=== PATIENT | male | born 1940 | race Caucasian/White ===

== ENCOUNTER → 2019-04-26 | Outpatient (CLI) | payer BC ==
--- NOTE | 2019-04-26 11:54 | CARD ---
MR#: [id number] Date of Study: 04/26/2019 Ordering Physician: CHRISSIE YAN, Referring Physician: CHRISSIE YAN, Tech: Mariam Rubio APPROVED REPORT EXAM: Two-dimensional and M-mode echocardiogram with Doppler and color Doppler. Other Information Quality : AverageHR: 70bpm Technically limited study due to body habitus. INDICATION Cardiac Disease: CAD RISK FACTORS Hypertension Hyperlipidemia Previous smoker 2D DIMENSIONS RVDd4.3 (2.9-3.5cm)Left Atrium(2D)4.8 (1.6-4.0cm) IVSd1.3 (0.7-1.1cm)Aortic Root(2D)3.4 (2.0-3.7cm) LVDd5.0 (3.9-5.9cm)LVOT Diameter2.2 (1.8-2.4cm) PWd1.2 (0.7-1.1cm)LVDs2.7 (2.5-4.0cm) FS (%) 46.7 %SV93.9 ml Aortic Valve AoV Peak Jaylen.125.3cm/sAoV VTI23.3cm AO Peak GR.6.3mmHgLVOT Peak Jaylen.88.4cm/s LVOT VTI 19.84cmAO Mean GR.3mmHg [place]RI[place] (VMAX)1.16cn0PTT (VTI)3.28cm2 AI P 1/2 Ysjo231dc Mitral Valve MV E Anpewxev00.3cm/sMV DECEL BQVG530we MV A Vgzfumcd66.6cm/sMV QNK49kx E/A Ratio1.1MVA (PHT)3.98cm2 TDI E/Lateral E'10.3E/Medial E'11.5 Pulmonary Valve PV Peak Enjfrcss564.4cm/sPV Peak Grad.5mmHg Tricuspid Valve TR P. Xanohxlt943wr/sTR Peak Gr.30mmHg Pulmonary Vein S1 Ceavlypc36.0cm/sD2 Psamwvhd53.3cm/s PVa xyoherkh256ouof LEFT VENTRICLE The left ventricle is normal size. There is mild to moderate concentric left ventricular hypertrophy. The left ventricular systolic function is normal and the ejection fraction is within normal range. T he Ejection Fraction is 60-65%. There is normal LV segmental wall motion. Transmitral Doppler flow pa ttern is Grade II-pseudonormal filling dynamics. RIGHT VENTRICLE The right ventricle is mildly dilated. There is normal right ventricular wall thickness. The right ve ntricular systolic function is normal. ATRIA The left atrium is borderline dilated. The right atrium is mildly dilated. The interatrial septum is intact with no evidence for an atrial septal defect or patent foramen ovale as noted on 2-D or Dopple r imaging. AORTIC VALVE The aortic valve is normal in structure and function. Doppler and Color Flow revealed trace aortic re gurgitation. There is no significant aortic valvular stenosis. MITRAL VALVE The mitral valve is thickened but opens well. There is no evidence of mitral valve prolapse. There is no mitral valve stenosis. Doppler and Color Flow revealed no mitral valve regurgitation noted. TRICUSPID VALVE The tricuspid valve is normal in structure and function. Doppler and Color Flow revealed trace tricus pid regurgitation with an estimated PAP of 37 mmHg. There is no tricuspid valve stenosis. PULMONIC VALVE The pulmonic valve is not well visualized. Doppler and Color Flow revealed trace to mild pulmonic john paul vular regurgitation. GREAT VESSELS The aortic root is normal in size. The IVC is normal in size and collapses >50% with inspiration. PERICARDIAL EFFUSION There is no evidence of significant pericardial effusion. Critical Notification Critical Value: No <Conclusion> The left ventricle is normal size. The left ventricular systolic function is normal and the ejection fraction is within normal range. The Ejection Fraction is 60-65%. There is mild to moderate concentric left ventricular hypertrophy. There is no significant aortic valvular stenosis. Doppler and Color Flow revealed trace aortic regurgitation. Doppler and Color Flow revealed no mitral valve regurgitation noted. Doppler and Color Flow revealed trace tricuspid regurgitation with an estimated PAP of 37 mmHg. Signed by : Andrew Rodas MD Electronically Approved : 04/26/2019 11:54:34
== END | disposition home or self-care (01) ==
LOC: ECHO 08:48
PROVIDERS: ATTEND Internal Medicine Cardiovascular Disease
DX: I37.1 Nonrheumatic pulmonary valve insufficiency (principal); I11.9 Hypertensive heart disease without heart failure; I25.10 Atherosclerotic heart disease of native coronary artery without angina pectoris; E78.5 Hyperlipidemia, unspecified; Z87.891 Personal history of nicotine dependence
CPT/HCPCS: 93306

== ENCOUNTER → 2020-03-08 | Outpatient (CLI) | payer BC ==
[~2020-03-08] MED LIST: AMLO5TAB10 PO; ASPI-630 PO; CARV25TA2 PO; CITA20TA6 PO; LISI-130 PO; LOVA20TA2 PO; OMEP20CA16 PO; TAMS0.4C97 PO
[2020-03-08 15:38] LABS: BASO % 0 % (0-3); EOS % 0 % (0-3); HEMATOCRIT 29.2 % (39.0-53.0); HEMOGLOBIN 10.6 g/dL (13.0-17.5); LYMPH # 1.2 x10^3/uL (1.0-4.8); LYMPH % 16 % (24-48); MEAN CORPUSCULAR HEMOGLOBIN 35 pg (25-35); MEAN CORPUSCULAR HGB CONC 36 g/dL (31-37); MEAN CORPUSCULAR VOLUME 96 fL (79-100); MONO # 0.7 x10^3/uL (0.0-1.1); MONO % 10 % (0-9); NEUT # 5.6 x10^3/uL (1.8-7.7); NEUT % 74 % (31-73); PLATELET COUNT 166 x10^3/uL (140-400); RED BLOOD COUNT 3.06 x10^6/uL (4.30-5.70); RED CELL DISTRIBUTION WIDTH 14.3 % (11.5-14.5); WHITE BLOOD COUNT 7.6 x10^3/uL (4.0-11.0)
[2020-03-08 16:00] LABS: ALBUMIN 2.9 g/dL (3.4-5.0); CREATININE 1.6 mg/dL (0.7-1.3); DIRECT BILIRUBIN 0.3 mg/dL (0.0-0.2); GFR 42.1; TOTAL BILIRUBIN 0.9 mg/dL (0.2-1.0); TOTAL PROTEIN 9.7 g/dL (6.4-8.2); URIC ACID 11.1 mg/dL (3.5-7.2)
[2020-03-08 16:08] LABS: CALCIUM 12.3 mg/dL (8.5-10.1); POTASSIUM 2.4 mmol/L (3.5-5.1)
[2020-03-10 02:08] LABS: CREATININE PTH 1.31 mg/dL (0.76-1.27); PHOSPHORUS PTH 3.5 mg/dL (2.8-4.1); PTH INTACT 16 pg/mL (15-65)
[2020-03-11 15:14] LABS: KAPPA FREE 548.5 mg/L (3.3-19.4); KAPPA LAMBDA RATIO 137.13 (0.26-1.65)
== END | disposition home or self-care (01) ==
LOC: ONCLAB 14:29
PROVIDERS: ATTEND Internal Medicine Hematology & Oncology
DX: R93.7 Abnormal findings on diagnostic imaging of other parts of musculoskeletal system (principal)
CPT/HCPCS: 36415; 80048; 80076; 82232; 82784; 83520; 83615; 83970; 84550; 85025; 86334

== ENCOUNTER 2020-03-09 14:13 | Outpatient (CLI) | payer BC ==
[2020-03-09 13:34] VITALS: BP 155/83
[~2020-03-09 14:13] MED LIST changes: -CARVEDILOL 12.5 MG TABLET. PO ONE; -LIDOCAINE WITH 8.4% SOD BICARB 3 ML DISP.SYRIN. IJ ONE; -LIDOCAINE WITH 8.4% SOD BICARB 3 ML DISP.SYRIN. ONE; -LISINOPRIL 10 MG TABLET PO ONE; -LISINOPRIL 20 MG TABLET PO ONE; -MIDAZOLAM HCL/PF 2 MG/2 ML VIAL. IV ONE; -MIDAZOLAM HCL/PF 2 MG/2 ML VIAL. ONE; -fentaNYL PF VIAL 100 MCG/2 ML VIAL IV ONE; -fentaNYL PF VIAL 100 MCG/2 ML VIAL ONE
[2020-03-09 14:44] LABS: BASO % 0 % (0-3); EOS % 0 % (0-3); HEMATOCRIT 27.3 % (39.0-53.0); LYMPH # 1.2 x10^3/uL (1.0-4.8); LYMPH % 20 % (24-48); MEAN CORPUSCULAR HEMOGLOBIN 35 pg (25-35); MEAN CORPUSCULAR HGB CONC 37 g/dL (31-37); MEAN CORPUSCULAR VOLUME 95 fL (79-100); MONO # 0.6 x10^3/uL (0.0-1.1); MONO % 10 % (0-9); NEUT # 4.3 x10^3/uL (1.8-7.7); NEUT % 70 % (31-73); PLATELET COUNT 162 x10^3/uL (140-400); RED BLOOD COUNT 2.88 x10^6/uL (4.30-5.70); RED CELL DISTRIBUTION WIDTH 13.7 % (11.5-14.5); WHITE BLOOD COUNT 6.1 x10^3/uL (4.0-11.0)
[2020-03-09 15:16] LABS: ALBUMIN 2.7 g/dL (3.4-5.0); ALBUMIN/GLOBULIN RATIO 0.4 (1.0-1.7); CALCIUM 11.9 mg/dL (8.5-10.1); CREATININE 1.6 mg/dL (0.7-1.3); GFR 42.1; TOTAL BILIRUBIN 0.7 mg/dL (0.2-1.0); TOTAL PROTEIN 8.8 g/dL (6.4-8.2); URIC ACID 10.9 mg/dL (3.5-7.2)
[2020-03-09 15:17] LABS: POTASSIUM 2.6 mmol/L (3.5-5.1)
== END 2020-03-09 14:20 | disposition home or self-care (01) ==
LOC: ONCLAB 14:13
PROVIDERS: ATTEND Internal Medicine Hematology & Oncology
DX: C90.00 Multiple myeloma not having achieved remission (principal)
CPT/HCPCS: 36415; 80053; 84550; 85025

== ENCOUNTER → 2020-03-09 | Outpatient (CLI) | payer BC ==
[2020-03-09] VITALS (8 sets, daily range): BP systolic 150–183; BP diastolic 62–89
[~2020-03-09] VITALS: Ht 170.2 cm; Wt 99.8 kg
[~2020-03-09] MED LIST changes: +CARVEDILOL 12.5 MG TABLET. PO ONE; +LIDOCAINE WITH 8.4% SOD BICARB 3 ML DISP.SYRIN. IJ ONE; +LIDOCAINE WITH 8.4% SOD BICARB 3 ML DISP.SYRIN. ONE; +LISINOPRIL 10 MG TABLET PO ONE; +LISINOPRIL 20 MG TABLET PO ONE; +MIDAZOLAM HCL/PF 2 MG/2 ML VIAL. IV ONE; +MIDAZOLAM HCL/PF 2 MG/2 ML VIAL. ONE; +fentaNYL PF VIAL 100 MCG/2 ML VIAL IV ONE; +fentaNYL PF VIAL 100 MCG/2 ML VIAL ONE
[2020-03-09 10:47] LABS: BASO % 0 % (0-3); EOS % 1 % (0-3); LYMPH % 16 % (24-48); MEAN CORPUSCULAR HEMOGLOBIN 34 pg (25-35); MEAN CORPUSCULAR HGB CONC 36 g/dL (31-37); MEAN CORPUSCULAR VOLUME 95 fL (79-100); MONO # 0.6 x10^3/uL (0.0-1.1); MONO % 10 % (0-9); NEUT # 4.4 x10^3/uL (1.8-7.7); NEUT % 73 % (31-73); PLATELET COUNT 161 x10^3/uL (140-400); RED BLOOD COUNT 2.95 x10^6/uL (4.30-5.70)
[2020-03-09 10:57] LABS: PROTHROMBIN TIME PATIENT 15.2 SEC (11.7-14.0)
--- NOTE | 2020-03-09 14:13 | RAD ---
CT-guided bone marrow biopsy. 03/09/2020 12:00 PM Indication: Multiple Myeloma Discussion: The risks and benefits of the procedure, including but not limited to, bleeding and infection were discussed patient. Informed consent was obtained. The patient was brought to the CT scanner and placed in the prone position. A timeout procedure was performed. Double Needle Operator CT imaging of the pelvis demonstrated left ilium amenable to bone marrow biopsy. The overlying soft tissues were prepped and draped using maximum sterile barrier technique. 1% lidocaine without epinephrine was administered for local anesthesia. Under intermittent CT guidance, an OncControl needle was advanced into the bone marrow of the left iliac crest. 2 Aspirates and 1 core biopsy samples were obtained. Samples were delivered to pathology was present at the time of procedure. The needle was removed and manual pressure held to achieve hemostasis. No immediate complications were identified. The procedure was performed under conscious sedation including continuous cardiopulmonary monitoring via dedicated sedation nurse. Sedation time: 20 minutes Impression: Successful CT-guided bone marrow biopsy of the left iliac crest . PQRS Compliance Statement: One or more of the following individualized dose reduction techniques were utilized for this examination: 1. Automated exposure control 2. Adjustment of the mA and/or kV according to patient size 3. Use of iterative reconstruction technique
--- NOTE | 2020-03-09 14:14 | NUR ---
Discharge Note: DELIA ZARAGOZA Discharge instructions and discharge home medications reviewed with Patient and a copy given. All questions have been answered and understanding verbalized. The following instructions and handouts were given: moderate sedation and bone marrow biopsy Discontinued lines and drains: Right FA iv dc'd and tip intact. Patient discharged to home with via personal vehicle.
--- NOTE | 2020-03-15 16:06 | PATHOLOGY ---
[facility] Accession Number: [id number] . 01 Material submitted: . PART A: bone - BONE MARROW BIOPSY PART B: bone - BONE MARROW CLOT PART C: bone - BONE MARROW ASPIRATE SLIDES PART D: bone - PERIPHERAL BLOOD SMEARS PART E: bone - BONE MARROW FLOW . 01 Clinical history: . Multiple myeloma . 02 Diagnosis: Peripheral smear: - Mild normocytic normochromic anemia. . . 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 - Absent iron stores. LBQ 03/14/2020 1713 Local . 02 Comment: The peripheral smear shows a mild normocytic normochromic anemia. The bone marrow is moderately hypercellular and shows trilineage hematopoiesis, no significant dyspoiesis, and a marked plasmacytosis comprised of atypical plasma cells. The plasma cells comprise approximately 80-90% of nucleated marrow cells. The plasma cells show kappa light chain restriction. There does appear to be evidence of end-organ damage attributable to the plasma cell proliferative disorder, including the presence of lytic bone lesions and hypercalcemia. The findings are supportive of the diagnosis of involvement by plasma cell myeloma. The case is also examined by Dr. Nunez, hematopathologist, who concurs with the diagnosis. . (JPM/db; 03/14/2020) . Iron stains on B1 and C1 and reticulin stain on A1 . The immunoperoxidase stains are CD138 performed on A1, B1, B2, B3, B4, B5 and kappa and lambda light chain CARMINA on A1 and kappa and lambda CARMINA on B1 . 02 Electronically signed: . Melecio Mayers MD, Pathologist NPI- [id number] . 01 Gross description: . A. The specimen is received in formalin, labeled "Brett Trey, bone marrow biopsy". Received are three needle cores of light rivera bone ranging in length from 0.3 to 0.5 cm and measuring 0.3 cm in diameter. The specimen is submitted entirely in cassette A1, following light decalcification. . B. The specimen is received in formalin, labeled "Brett Trey, BM clot aspirate". Received is blood coagulum measuring 4.8 x 2.2 x 1.0 cm in aggregate dimensions. The specimen is filtered and entirely submitted in cassette B1 through B5. (CAA; 03/09/2020) QAC/QAC 03/09/2020 1723 Local . 02 Microscopic: . Laboratory Data: The WBC count is 6.0 K/CMM, and the automated WBC differential reveals 73% neutrophils, 16% lymphs, 10% monos and 1% eos. The RBC count is 2.95 M/CMM, hemoglobin 10.0 G/DL, hematocrit 28.0%, MCV 95 FL, MCH 34 PG, MCHC 36 G/DL, and the RDW is 14.0%. The platelet count is 161 K/CMM. The total protein is 9.7 G/DL, albumin 2.9 G/DL, globulin 6.8 G/DL, calcium 12.3 MG/DL, BUN 31 MG/DL, creatinine 1.6 MG/DL, and uric acid 11.1 MG/DL. The BETA-2 microglobulin is 3.4 MG/L. The serum kappa light chain is 548.5 MG/L, lambda light chain 4.0 MG/L, and the kappa/lambda ratio is 137.13. Additional laboratory studies show IgG 4,660 MG/DL, IgA 8 MG/DL, and IgM 33 MG/DL. Skeletal X-rays reveal multiple lytic lesions. . Peripheral Smear: The peripheral smear is reviewed. The WBC count is normal. The WBC differential reveals a predominance of segmented neutrophils, with smaller populations of lymphocytes and monocytes noted. Neutrophils show no dysplastic changes. There is a rare circulating myelocyte. There is no significant neutrophilic left shift or leukoerythroblastic reaction. The lymphocyte population consists predominantly of small lymphocytes. There are no obvious circulating myeloma cells. Red blood cells predominantly appear normochromic and normocytic. Red blood cells show no significant anisopoikilocytosis. Platelets appear normal in number and morphology. . Aspirate Smears: Three Mccullough's-stained and one iron-stained aspirate smears are examined. The smears contain multiple marrow particles which are obviously hypercellular for age. There are areas of marked plasmacytosis which show up to approximately 70-75% plasma cells. Other areas show a smaller proportion of plasma cells. The plasma cells are atypical. These plasma cells are enlarged and possess enlarged eccentric nuclei containing variably distinct nucleoli. There are binucleated plasma cells present. Erythroid maturation appears normoblastic. There are no megaloblastic or overt dysplastic changes. Granulopoiesis qualitatively appears normal. There is no significant left shift. There is no increase of blasts. Megakaryocytes appear adequate in number and are of variable ploidy. Lymphocytes are not increased. There are no other cells foreign to the marrow. The iron stained smear shows absent iron stores. No ringed sideroblasts are identified. . Bone Marrow Biopsy and Clot Sections: Sections of the bone marrow biopsy reveal several fragments of bone marrow showing focal aspiration artifact. Preserved areas of the biopsy are on the order of 70-80% cellular. The clot sections contain multiple marrow particles. Most of these particles range between 40-50% and 80% cellular. There are areas of marked plasmacytosis showing sheet-like replacement by atypical plasma cells. These plasma cells are enlarged, and possess enlarged eccentric nuclei having a somewhat delicate chromatin and small nucleoli. Other areas show a smaller proportion of plasma cells with admixed erythroid and granulocytic precursors, which are present in varying stages of maturation. Megakaryocytes overall appear adequate in number and are of variable ploidy. There are no abnormal lymphoid aggregates, granulomas, or other cells foreign to the marrow. Immunoperoxidase stains for CD138 and in situ hybridization for kappa and lambda light chain are obtained and yield the following results: . CD138 (A1) - Plasma cells positive comprising approximately 80-90% of nucleated marrow cells [place] and lambda CARMINA (A1) - Plasma cells show kappa light chain restriction CD138 (B1) - Plasma cells positive and comprise approximately 80-90% of nucleated marrow cells [employer] [place] and lambda CARMINA (B1) - Plasma cells show kappa light chain restriction CD138 (B2) - Plasma cells positive and comprise approximately 80-90% of nucleated marrow cells CD138 (B3) - Plasma cells positive and comprise approximately 80-90% of nucleated marrow cells CD138 (B4) - Plasma cells positive and comprise approximately 80-90% of nucleated marrow cells CD138 (B5) - Plasma cells positive and comprise approximately 80-90% of nucleated marrow cells . An iron stain of the clot section shows absent iron stores. A reticulin stain of the biopsy shows a focal mild increase of reticulin fibers. (JPM/db; 03/14/2020) . Special Studies: Bone marrow submitted for flow cytometric analysis has a viability of 95%. Granulocytes comprise 65.0% of total cells. Granulocytes show phenotypic evidence of maturation, and 10-15% express CD56. Monocytes comprise 4.7% of total cells and co-express CD14 and CD64. CD45 dim, CD34 positive cells comprise 0.5% of total cells. Lymphocytes comprise 11.4% of total cells. T-cells comprise 70% of lymphoid cells and show a CD4/CD8 ratio of 4.2. NK-cells comprise 16% of lymphoid cells. Most of the mature B-cells (11% of lymphoid cells) are polyclonal and show a kappa:lambda ratio of 5.3, although 1-2% show a restricted pattern of kappa light chain expression. Plasma cells comprise 21% of total cells and consist of CD45 positive and CD45 negative monotypic plasma cells that express cytoplasmic kappa light chain, CD138, CD38, CD117, and CD56, and show a kappa/lambda ratio of greater than 100:1. (JPM:pit:db 03/13/2020) . 02 Pathologist provided ICD-10: D64.9, D72.822 . 02 CPT . 399927, 732966, 594245, 536282, 024031, 161717, 757452, 430650, S79978, [id number], [id number] Specimen Comment: A courtesy copy of this report has been sent to [phone] Specimen Comment: [id number], Specimen Comment: Report sent to ,DR THOMAS / DR YU Performed at: 01 [facility] [address], [place] [id number] MD Immanuel Delaney MD Phone: [phone] Performed at: 02 [facility] [address], [place] [id number] MD Melecio Mayers MD Phone: [phone]
== END | disposition home or self-care (01) ==
LOC: INTRAD 10:05
PROVIDERS: ATTEND Internal Medicine Hematology & Oncology
DX: C90.00 Multiple myeloma not having achieved remission (principal); Z79.82 Long term (current) use of aspirin; D64.89 Other specified anemias; Z79.899 Other long term (current) drug therapy; Z87.891 Personal history of nicotine dependence
CPT/HCPCS: 36415; 38222; 77012; 85025; 85610; 88184; 88185; 88237; J2250; J3010; J3490; 88305; 88311; 88313; 88342; 88364; 88365; 99152

== ENCOUNTER → 2020-04-05 | Outpatient (CLI) | payer BC ==
[2020-03-09 13:34] VITALS: BP 155/83
[2020-04-05 11:32] LABS: BASO % 1 % (0-3); EOS % 1 % (0-3); HEMATOCRIT 22.2 % (39.0-53.0); HEMOGLOBIN 7.8 g/dL (13.0-17.5); LYMPH # 0.9 x10^3/uL (1.0-4.8); LYMPH % 21 % (24-48); MEAN CORPUSCULAR HEMOGLOBIN 34 pg (25-35); MEAN CORPUSCULAR HGB CONC 35 g/dL (31-37); MEAN CORPUSCULAR VOLUME 98 fL (79-100); MONO # 0.5 x10^3/uL (0.0-1.1); MONO % 12 % (0-9); NEUT # 2.8 x10^3/uL (1.8-7.7); NEUT % 66 % (31-73); PLATELET COUNT 189 x10^3/uL (140-400); RED BLOOD COUNT 2.27 x10^6/uL (4.30-5.70); RED CELL DISTRIBUTION WIDTH 16.2 % (11.5-14.5); WHITE BLOOD COUNT 4.3 x10^3/uL (4.0-11.0)
[2020-04-05 11:45] LABS: CALCIUM 7.2 mg/dL (8.5-10.1); CREATININE 2.2 mg/dL (0.7-1.3); GFR 29.2; POTASSIUM 4.4 mmol/L (3.5-5.1)
[2020-04-05 11:55] LABS: ALBUMIN 2.4 g/dL (3.4-5.0); ALBUMIN/GLOBULIN RATIO 0.4 (1.0-1.7); TOTAL BILIRUBIN 0.7 mg/dL (0.2-1.0); TOTAL PROTEIN 9.2 g/dL (6.4-8.2)
[2020-04-06 02:08] LABS: HEMOGLOBIN A1C 5.2 % (4.8-5.6)
== END | disposition home or self-care (01) ==
LOC: ONCLAB 10:58
PROVIDERS: ATTEND Internal Medicine Hematology & Oncology
DX: C90.00 Multiple myeloma not having achieved remission (principal)
CPT/HCPCS: 36415; 80053; 83036; 85025

== ENCOUNTER → 2020-04-06 | Outpatient (CLI) | payer BC ==
[2020-03-09 13:34] VITALS: BP 155/83
[2020-04-06 09:38] LABS: BASO % 1 % (0-3); EOS % 1 % (0-3); HEMATOCRIT 21.9 % (39.0-53.0); HEMOGLOBIN 7.8 g/dL (13.0-17.5); LYMPH # 0.8 x10^3/uL (1.0-4.8); LYMPH % 21 % (24-48); MEAN CORPUSCULAR HEMOGLOBIN 35 pg (25-35); MEAN CORPUSCULAR HGB CONC 36 g/dL (31-37); MEAN CORPUSCULAR VOLUME 98 fL (79-100); MONO # 0.4 x10^3/uL (0.0-1.1); MONO % 10 % (0-9); NEUT # 2.7 x10^3/uL (1.8-7.7); NEUT % 68 % (31-73); PLATELET COUNT 186 x10^3/uL (140-400); RED BLOOD COUNT 2.24 x10^6/uL (4.30-5.70); RED CELL DISTRIBUTION WIDTH 16.5 % (11.5-14.5)
[2020-04-06 10:05] LABS: CALCIUM 7.3 mg/dL (8.5-10.1); CREATININE 1.7 mg/dL (0.7-1.3); GFR 39.3; POTASSIUM 4.3 mmol/L (3.5-5.1)
[2020-04-06 10:11] LABS: ALBUMIN 2.5 g/dL (3.4-5.0); ALBUMIN/GLOBULIN RATIO 0.4 (1.0-1.7); TOTAL BILIRUBIN 0.7 mg/dL (0.2-1.0); TOTAL PROTEIN 9.4 g/dL (6.4-8.2)
== END | disposition home or self-care (01) ==
LOC: ONCLAB 08:33
PROVIDERS: ATTEND Internal Medicine Hematology & Oncology
DX: C90.00 Multiple myeloma not having achieved remission (principal)
CPT/HCPCS: 36415; 80053; 85025

== ENCOUNTER → 2020-04-07 | Outpatient (CLI) | payer BC ==
[2020-03-09 13:34] VITALS: BP 155/83
--- NOTE | 2020-04-07 15:07 | RAD ---
EXAM: PET/CT whole body. HISTORY: Multiple myeloma. TECHNIQUE: CT was performed of the whole body for the purposes of attenuation correction. 15.7 mCi F-18 fluorodeoxyglucose (FDG) was administered intravenously. After an uptake period, positron emission tomography was performed throughout the body. The PET and CT data were fused and interpreted in combination a dedicated workstation. Blood glucose level was 132 mg/dL at the time of FDG administration. FINDINGS: There are changes of internal fixation of pathologic fracture along the right distal femoral metadiaphysis. Surrounding nonfocal uptake may reflect healing response or residual tumor. A masslike region is not seen at this site. A focus of uptake associated with a lytic lesion within the left proximal tibial metaphysis measures 2.1 cm with maximum SUV 3.1. Another small lesion is noted at the base of the right coracoid. A tiny lesion is noted within the left aspect of the sternal manubrium. A small lesion is noted within the right sacral ala. The largest lesion in the right medial iliac bone measures 3.5 cm with maximum SUV 5.5. A small lesion is suspected at the tip of the right anterior 3rd rib. There is also uptake at the tips of the anteroinferior ribs bilaterally which may reflect small lesions or prior trauma. Additional CT findings include coronary atherosclerotic calcifications. The heart is mildly enlarged. Calcified mediastinal lymph nodes are likely secondary to old granulomatous disease. There are calcified granulomas in the liver and spleen. A 3 cm right renal cyst appears benign. IMPRESSION: 1. Treated lesion and pathologic fracture within the right distal femur. Residual uptake may reflect a healing fracture, but residual tumor cannot be excluded. 2. Multiple additional small skeletal lesions as detailed above. None and immediate risk of pathologic fracture identified.
== END | disposition home or self-care (01) ==
LOC: PETSC 09:52
PROVIDERS: ATTEND Internal Medicine Hematology & Oncology
DX: C90.00 Multiple myeloma not having achieved remission (principal); M85.89 Other specified disorders of bone density and structure, multiple sites; R93.7 Abnormal findings on diagnostic imaging of other parts of musculoskeletal system
CPT/HCPCS: 78815; A9552

== ENCOUNTER → 2020-04-12 | Outpatient (CLI) | payer BC ==
[2020-04-12 12:12] LABS: BASO % 0 % (0-3); EOS % 1 % (0-3); HEMATOCRIT 21.5 % (39.0-53.0); HEMOGLOBIN 7.5 g/dL (13.0-17.5); LYMPH # 1.1 x10^3/uL (1.0-4.8); LYMPH % 22 % (24-48); MEAN CORPUSCULAR HEMOGLOBIN 35 pg (25-35); MEAN CORPUSCULAR HGB CONC 35 g/dL (31-37); MEAN CORPUSCULAR VOLUME 99 fL (79-100); MONO # 0.5 x10^3/uL (0.0-1.1); MONO % 10 % (0-9); NEUT # 3.3 x10^3/uL (1.8-7.7); NEUT % 67 % (31-73); PLATELET COUNT 211 x10^3/uL (140-400); RED BLOOD COUNT 2.18 x10^6/uL (4.30-5.70); RED CELL DISTRIBUTION WIDTH 17.3 % (11.5-14.5); WHITE BLOOD COUNT 4.9 x10^3/uL (4.0-11.0)
[2020-04-12 12:19] LABS: CALCIUM 7.8 mg/dL (8.5-10.1); CREATININE 1.4 mg/dL (0.7-1.3); GFR 49.1; POTASSIUM 5.1 mmol/L (3.5-5.1)
[2020-04-12 12:24] LABS: ALBUMIN 2.6 g/dL (3.4-5.0); ALBUMIN/GLOBULIN RATIO 0.4 (1.0-1.7); TOTAL BILIRUBIN 0.8 mg/dL (0.2-1.0); TOTAL PROTEIN 9.3 g/dL (6.4-8.2)
== END ==
LOC: ONCLAB 11:35
PROVIDERS: ATTEND Internal Medicine Hematology & Oncology
DX: E83.52 Hypercalcemia (principal); R93.7 Abnormal findings on diagnostic imaging of other parts of musculoskeletal system
CPT/HCPCS: 36415; 80053; 83615; 85025

== ENCOUNTER → 2020-04-21 | Outpatient (CLI) | payer BC ==
[2020-04-12 15:56] VITALS: BP 135/72
[2020-04-21 13:18] LABS: BASO % 0 % (0-3); EOS % 0 % (0-3); HEMOGLOBIN 7.8 g/dL (13.0-17.5); LYMPH # 0.6 x10^3/uL (1.0-4.8); LYMPH % 15 % (24-48); MEAN CORPUSCULAR HEMOGLOBIN 35 pg (25-35); MEAN CORPUSCULAR HGB CONC 34 g/dL (31-37); MEAN CORPUSCULAR VOLUME 103 fL (79-100); MONO # 0.2 x10^3/uL (0.0-1.1); MONO % 4 % (0-9); NEUT # 3.6 x10^3/uL (1.8-7.7); NEUT % 81 % (31-73); PLATELET COUNT 171 x10^3/uL (140-400); RED BLOOD COUNT 2.23 x10^6/uL (4.30-5.70); RED CELL DISTRIBUTION WIDTH 19.1 % (11.5-14.5); WHITE BLOOD COUNT 4.4 x10^3/uL (4.0-11.0)
[2020-04-21 13:30] LABS: CALCIUM 7.8 mg/dL (8.5-10.1); CREATININE 1.2 mg/dL (0.7-1.3); GFR 58.7; POTASSIUM 5.4 mmol/L (3.5-5.1)
[2020-04-21 13:35] LABS: ALBUMIN 2.6 g/dL (3.4-5.0); ALBUMIN/GLOBULIN RATIO 0.4 (1.0-1.7); TOTAL BILIRUBIN 0.5 mg/dL (0.2-1.0)
== END ==
LOC: ONCLAB 12:59
PROVIDERS: ATTEND Internal Medicine Hematology & Oncology
DX: C90.00 Multiple myeloma not having achieved remission (principal)
CPT/HCPCS: 36415; 80053; 85025

== ENCOUNTER → 2020-04-28 | Outpatient (CLI) | payer BC ==
[2020-04-28 10:16] VITALS: BP 112/56
[2020-04-28 13:54] LABS: BASO % 0 % (0-3); EOS % 0 % (0-3); HEMATOCRIT 23.9 % (39.0-53.0); HEMOGLOBIN 8.3 g/dL (13.0-17.5); LYMPH # 0.4 x10^3/uL (1.0-4.8); LYMPH % 8 % (24-48); MEAN CORPUSCULAR HEMOGLOBIN 35 pg (25-35); MEAN CORPUSCULAR HGB CONC 35 g/dL (31-37); MEAN CORPUSCULAR VOLUME 102 fL (79-100); MONO # 0.1 x10^3/uL (0.0-1.1); MONO % 1 % (0-9); NEUT # 4.6 x10^3/uL (1.8-7.7); NEUT % 91 % (31-73); PLATELET COUNT 133 x10^3/uL (140-400); RED BLOOD COUNT 2.34 x10^6/uL (4.30-5.70); RED CELL DISTRIBUTION WIDTH 19.5 % (11.5-14.5); WHITE BLOOD COUNT 5.1 x10^3/uL (4.0-11.0)
[2020-04-28 14:10] LABS: CALCIUM 7.6 mg/dL (8.5-10.1); CREATININE 1.1 mg/dL (0.7-1.3); GFR 64.9; POTASSIUM 5.1 mmol/L (3.5-5.1)
[2020-04-28 14:14] LABS: ALBUMIN 2.7 g/dL (3.4-5.0); ALBUMIN/GLOBULIN RATIO 0.5 (1.0-1.7); TOTAL BILIRUBIN 0.6 mg/dL (0.2-1.0); TOTAL PROTEIN 7.9 g/dL (6.4-8.2)
[2020-04-28 14:15] LABS: % BANDS 4 % (0-9); % BASOS 1 % (0-3); % LYMPHS 10 % (24-48); % MONOS 1 % (0-10); % SEGS 84 % (35-66); PLT ESTIMATE ADEQUATE (ADEQUATE)
[2020-04-28 14:19] LABS: ANISOCYTOSIS SLIGHT
== END ==
LOC: ONCLAB 13:45
PROVIDERS: ATTEND Internal Medicine Hematology & Oncology
DX: C90.00 Multiple myeloma not having achieved remission (principal)
CPT/HCPCS: 36415; 80053; 85007; 85025

== ENCOUNTER → 2020-05-03 | Outpatient (CLI) | payer BC ==
[2020-04-28 10:16] VITALS: BP 112/56
[2020-05-03 13:47] LABS: BASO % 0 % (0-3); EOS % 1 % (0-3); HEMATOCRIT 24.8 % (39.0-53.0); HEMOGLOBIN 8.3 g/dL (13.0-17.5); LYMPH # 0.8 x10^3/uL (1.0-4.8); LYMPH % 20 % (24-48); MEAN CORPUSCULAR HEMOGLOBIN 34 pg (25-35); MEAN CORPUSCULAR HGB CONC 34 g/dL (31-37); MEAN CORPUSCULAR VOLUME 103 fL (79-100); MONO # 0.5 x10^3/uL (0.0-1.1); MONO % 14 % (0-9); NEUT # 2.5 x10^3/uL (1.8-7.7); NEUT % 65 % (31-73); PLATELET COUNT 103 x10^3/uL (140-400); RED BLOOD COUNT 2.42 x10^6/uL (4.30-5.70); RED CELL DISTRIBUTION WIDTH 18.7 % (11.5-14.5); WHITE BLOOD COUNT 3.8 x10^3/uL (4.0-11.0)
[2020-05-03 13:56] LABS: CALCIUM 7.5 mg/dL (8.5-10.1); CREATININE 1.1 mg/dL (0.7-1.3); GFR 64.9; POTASSIUM 5.2 mmol/L (3.5-5.1)
[2020-05-03 14:01] LABS: ALBUMIN 2.7 g/dL (3.4-5.0); ALBUMIN/GLOBULIN RATIO 0.6 (1.0-1.7); TOTAL BILIRUBIN 0.5 mg/dL (0.2-1.0); TOTAL PROTEIN 6.9 g/dL (6.4-8.2)
== END | disposition home or self-care (01) ==
LOC: ONCLAB 13:11
PROVIDERS: ATTEND Internal Medicine Hematology & Oncology
DX: C90.00 Multiple myeloma not having achieved remission (principal)
CPT/HCPCS: 36415; 80053; 85025

== ENCOUNTER → 2020-05-05 | Outpatient (CLI) | payer BC ==
[2020-04-28 10:16] VITALS: BP 112/56
[2020-05-05 11:24] LABS: BASO % 0 % (0-3); EOS % 1 % (0-3); HEMATOCRIT 24.6 % (39.0-53.0); HEMOGLOBIN 8.3 g/dL (13.0-17.5); LYMPH # 0.7 x10^3/uL (1.0-4.8); LYMPH % 18 % (24-48); MEAN CORPUSCULAR HEMOGLOBIN 34 pg (25-35); MEAN CORPUSCULAR HGB CONC 34 g/dL (31-37); MEAN CORPUSCULAR VOLUME 102 fL (79-100); MONO # 0.8 x10^3/uL (0.0-1.1); MONO % 18 % (0-9); NEUT # 2.7 x10^3/uL (1.8-7.7); NEUT % 63 % (31-73); PLATELET COUNT 140 x10^3/uL (140-400); RED CELL DISTRIBUTION WIDTH 18.5 % (11.5-14.5); WHITE BLOOD COUNT 4.2 x10^3/uL (4.0-11.0)
[2020-05-05 11:39] LABS: CALCIUM 7.4 mg/dL (8.5-10.1); CREATININE 1.1 mg/dL (0.7-1.3); GFR 64.9; POTASSIUM 4.5 mmol/L (3.5-5.1)
[2020-05-05 11:48] LABS: ALBUMIN 2.7 g/dL (3.4-5.0); ALBUMIN/GLOBULIN RATIO 0.7 (1.0-1.7); TOTAL BILIRUBIN 0.6 mg/dL (0.2-1.0); TOTAL PROTEIN 6.6 g/dL (6.4-8.2)
== END | disposition home or self-care (01) ==
LOC: ONCLAB 11:06
PROVIDERS: ATTEND Internal Medicine Hematology & Oncology
DX: C90.00 Multiple myeloma not having achieved remission (principal)
CPT/HCPCS: 36415; 80053; 85025

== ENCOUNTER → 2020-05-12 | Outpatient (CLI) | payer BC ==
[2020-05-12 11:40] VITALS: BP 166/74
[2020-05-12 13:07] LABS: BASO % 0 % (0-3); EOS % 1 % (0-3); HEMATOCRIT 26.4 % (39.0-53.0); HEMOGLOBIN 9.5 g/dL (13.0-17.5); LYMPH # 0.6 x10^3/uL (1.0-4.8); LYMPH % 13 % (24-48); MEAN CORPUSCULAR HEMOGLOBIN 37 pg (25-35); MEAN CORPUSCULAR HGB CONC 36 g/dL (31-37); MEAN CORPUSCULAR VOLUME 102 fL (79-100); MONO # 0.1 x10^3/uL (0.0-1.1); MONO % 3 % (0-9); NEUT # 3.9 x10^3/uL (1.8-7.7); NEUT % 83 % (31-73); PLATELET COUNT 189 x10^3/uL (140-400); RED BLOOD COUNT 2.59 x10^6/uL (4.30-5.70); RED CELL DISTRIBUTION WIDTH 18.5 % (11.5-14.5); WHITE BLOOD COUNT 4.7 x10^3/uL (4.0-11.0)
[2020-05-12 13:26] LABS: CALCIUM 7.5 mg/dL (8.5-10.1); CREATININE 1.1 mg/dL (0.7-1.3); GFR 64.9
[2020-05-12 13:38] LABS: ALBUMIN 2.9 g/dL (3.4-5.0); ALBUMIN/GLOBULIN RATIO 0.8 (1.0-1.7); TOTAL BILIRUBIN 0.6 mg/dL (0.2-1.0); TOTAL PROTEIN 6.7 g/dL (6.4-8.2)
== END ==
LOC: ONCLAB 12:53
PROVIDERS: ATTEND Internal Medicine Hematology & Oncology
DX: C90.00 Multiple myeloma not having achieved remission (principal)
CPT/HCPCS: 36415; 80053; 85025

== ENCOUNTER → 2020-05-19 | Outpatient (CLI) | payer BC ==
[2020-05-19 11:48] VITALS: BP 150/72
[2020-05-19 13:41] LABS: BASO % 0 % (0-3); EOS % 0 % (0-3); HEMATOCRIT 29.3 % (39.0-53.0); HEMOGLOBIN 9.9 g/dL (13.0-17.5); LYMPH # 0.5 x10^3/uL (1.0-4.8); LYMPH % 11 % (24-48); MEAN CORPUSCULAR HEMOGLOBIN 35 pg (25-35); MEAN CORPUSCULAR HGB CONC 34 g/dL (31-37); MEAN CORPUSCULAR VOLUME 103 fL (79-100); MONO # 0.2 x10^3/uL (0.0-1.1); MONO % 4 % (0-9); NEUT # 4.1 x10^3/uL (1.8-7.7); NEUT % 84 % (31-73); PLATELET COUNT 112 x10^3/uL (140-400); RED BLOOD COUNT 2.86 x10^6/uL (4.30-5.70); RED CELL DISTRIBUTION WIDTH 18.9 % (11.5-14.5); WHITE BLOOD COUNT 4.9 x10^3/uL (4.0-11.0)
[2020-05-19 13:53] LABS: CALCIUM 7.2 mg/dL (8.5-10.1); CREATININE 0.9 mg/dL (0.7-1.3); GFR 81.8; POTASSIUM 4.1 mmol/L (3.5-5.1)
[2020-05-19 14:05] LABS: ALBUMIN/GLOBULIN RATIO 0.9 (1.0-1.7); TOTAL PROTEIN 6.4 g/dL (6.4-8.2)
== END | disposition home or self-care (01) ==
LOC: ONCLAB 13:25
PROVIDERS: ATTEND Internal Medicine Hematology & Oncology
DX: C90.00 Multiple myeloma not having achieved remission (principal)
CPT/HCPCS: 36415; 80053; 85025

== ENCOUNTER → 2020-05-26 | Outpatient (CLI) | payer BC ==
[2020-05-19 11:48] VITALS: BP 150/72
[2020-05-26 15:16] LABS: BASO % 0 % (0-3); EOS % 0 % (0-3); HEMATOCRIT 31.9 % (39.0-53.0); HEMOGLOBIN 10.7 g/dL (13.0-17.5); LYMPH # 0.4 x10^3/uL (1.0-4.8); LYMPH % 8 % (24-48); MEAN CORPUSCULAR HEMOGLOBIN 35 pg (25-35); MEAN CORPUSCULAR HGB CONC 34 g/dL (31-37); MEAN CORPUSCULAR VOLUME 103 fL (79-100); MONO # 0.1 x10^3/uL (0.0-1.1); MONO % 1 % (0-9); NEUT # 4.5 x10^3/uL (1.8-7.7); NEUT % 91 % (31-73); PLATELET COUNT 189 x10^3/uL (140-400); RED BLOOD COUNT 3.09 x10^6/uL (4.30-5.70); RED CELL DISTRIBUTION WIDTH 18.3 % (11.5-14.5)
[2020-05-26 15:26] LABS: CALCIUM 7.9 mg/dL (8.5-10.1); CREATININE 0.9 mg/dL (0.7-1.3); GFR 81.8; POTASSIUM 4.2 mmol/L (3.5-5.1)
[2020-05-26 15:34] LABS: ALBUMIN 3.2 g/dL (3.4-5.0); TOTAL BILIRUBIN 0.7 mg/dL (0.2-1.0); TOTAL PROTEIN 6.5 g/dL (6.4-8.2)
[2020-05-26 15:39] LABS: % BANDS 1 % (0-9); % LYMPHS 9 % (24-48); % SEGS 90 % (35-66); ANISOCYTOSIS SLIGHT; PLATELET CLUMP PRESENT; PLT ESTIMATE ADEQUATE (ADEQUATE); POIKILOCYTOSIS SLIGHT; TEAR DROP CELLS OCC
[2020-05-26 15:40] LABS: BURR CELLS OCC; OVALOCYTES OCC; SCHISTOCYTES OCC; TOXIC GRANULATION SLIGHT
[2020-05-27 21:08] LABS: KAPPA FREE 11.8 mg/L (3.3-19.4); KAPPA LAMBDA RATIO 1.28 (0.26-1.65); LAMBDA FREE 9.2 mg/L (5.7-26.3)
[2020-05-29 12:10] LABS: ALBUM 3.4 g/dL (2.9-4.4); ALPHA 1 0.3 g/dL (0.0-0.4); ALPHA 2 0.6 g/dL (0.4-1.0); BETA 0.7 g/dL (0.7-1.3); GAMMA 0.9 g/dL (0.4-1.8); PROTEIN TOTAL 5.9 g/dL (6.0-8.5); SPEP AG RATIO 1.4 (0.7-1.7)
== END | disposition home or self-care (01) ==
LOC: ONCLAB 11:47
PROVIDERS: ATTEND Internal Medicine Hematology & Oncology
DX: C90.00 Multiple myeloma not having achieved remission (principal)
CPT/HCPCS: 36415; 80053; 83520; 84165; 85007; 85025

== ENCOUNTER → 2020-06-09 | Outpatient (CLI) | payer BC ==
[2020-05-19 11:48] VITALS: BP 150/72
[2020-06-09 09:04] LABS: BASO % 1 % (0-3); EOS # 0.2 x10^3/uL (0.0-0.7); EOS % 3 % (0-3); HEMATOCRIT 34.8 % (39.0-53.0); HEMOGLOBIN 11.7 g/dL (13.0-17.5); LYMPH # 0.9 x10^3/uL (1.0-4.8); LYMPH % 16 % (24-48); MEAN CORPUSCULAR HEMOGLOBIN 34 pg (25-35); MEAN CORPUSCULAR HGB CONC 34 g/dL (31-37); MEAN CORPUSCULAR VOLUME 100 fL (79-100); MONO # 0.3 x10^3/uL (0.0-1.1); MONO % 5 % (0-9); NEUT # 4.3 x10^3/uL (1.8-7.7); NEUT % 76 % (31-73); PLATELET COUNT 221 x10^3/uL (140-400); RED BLOOD COUNT 3.49 x10^6/uL (4.30-5.70); RED CELL DISTRIBUTION WIDTH 15.7 % (11.5-14.5); WHITE BLOOD COUNT 5.7 x10^3/uL (4.0-11.0)
[2020-06-09 09:25] LABS: CALCIUM 8.1 mg/dL (8.5-10.1); CREATININE 0.8 mg/dL (0.7-1.3); GFR 93.5; POTASSIUM 3.3 mmol/L (3.5-5.1)
[2020-06-09 09:31] LABS: ALBUMIN 3.1 g/dL (3.4-5.0); TOTAL BILIRUBIN 0.7 mg/dL (0.2-1.0); TOTAL PROTEIN 6.2 g/dL (6.4-8.2)
== END | disposition home or self-care (01) ==
LOC: ONCLAB 08:00
PROVIDERS: ATTEND Internal Medicine Hematology & Oncology
DX: C90.00 Multiple myeloma not having achieved remission (principal)
CPT/HCPCS: 36415; 80053; 85025

== ENCOUNTER → 2020-06-23 | Outpatient (CLI) | payer BC ==
[2020-06-16 11:09] VITALS: BP 169/77
[~2020-06-23] MED LIST changes: +AMLO-186 PO; -AMLO5TAB10 PO
[2020-06-23 10:38] LABS: CALCIUM 8.3 mg/dL (8.5-10.1); CREATININE 0.8 mg/dL (0.7-1.3); GFR 93.5; POTASSIUM 3.7 mmol/L (3.5-5.1)
[2020-06-23 10:45] LABS: ALBUMIN 3.3 g/dL (3.4-5.0); TOTAL BILIRUBIN 1.2 mg/dL (0.2-1.0); TOTAL PROTEIN 6.5 g/dL (6.4-8.2)
[2020-06-23 10:46] LABS: BASO % 0 % (0-3); EOS % 0 % (0-3); HEMATOCRIT 37.7 % (39.0-53.0); HEMOGLOBIN 12.4 g/dL (13.0-17.5); LYMPH # 0.8 x10^3/uL (1.0-4.8); LYMPH % 10 % (24-48); MEAN CORPUSCULAR HEMOGLOBIN 32 pg (25-35); MEAN CORPUSCULAR HGB CONC 33 g/dL (31-37); MEAN CORPUSCULAR VOLUME 98 fL (79-100); MONO # 1.5 x10^3/uL (0.0-1.1); MONO % 19 % (0-9); NEUT # 5.4 x10^3/uL (1.8-7.7); NEUT % 70 % (31-73); PLATELET COUNT 164 x10^3/uL (140-400); RED BLOOD COUNT 3.85 x10^6/uL (4.30-5.70); WHITE BLOOD COUNT 7.7 x10^3/uL (4.0-11.0)
[2020-06-23 12:43] LABS: % LYMPHS 15 % (24-48); % MONOS 15 % (0-10); % SEGS 70 % (35-66); PLT ESTIMATE ADEQUATE (ADEQUATE)
[2020-06-24 16:09] LABS: KAPPA FREE 14.6 mg/L (3.3-19.4); KAPPA LAMBDA RATIO 0.87 (0.26-1.65); LAMBDA FREE 16.8 mg/L (5.7-26.3)
[2020-06-26 18:09] LABS: ALBUM 3.3 g/dL (2.9-4.4); ALPHA 1 0.3 g/dL (0.0-0.4); ALPHA 2 0.8 g/dL (0.4-1.0); BETA 0.5 g/dL (0.7-1.3); GAMMA 0.6 g/dL (0.4-1.8); PROTEIN TOTAL 5.5 g/dL (6.0-8.5); SPEP AG RATIO 1.5 (0.7-1.7)
== END ==
LOC: ONCLAB 08:00
PROVIDERS: ATTEND Internal Medicine Hematology & Oncology
DX: C90.00 Multiple myeloma not having achieved remission (principal)
CPT/HCPCS: 36415; 80053; 83520; 84165; 85007; 85025

== ENCOUNTER → 2020-06-23 | Outpatient (CLI) | payer BC ==
[2020-06-16 11:09] VITALS: BP 169/77
[~2020-06-23] MED LIST changes: -AMLO-186 PO; +AMLO5TAB10 PO
--- NOTE | 2020-06-23 12:45 | RAD ---
VENOUS LOWER EXTREMITY RIGHT History: Reason: Lower Extremity Edema / Spl. Instructions: / History: Comparison: None. Discussion: Multiple longitudinal and transverse high resolution real-time images of the venous system of right lower extremity were obtained with color and Doppler sampling. The common femoral, superficial femoral, popliteal and proximal calf veins are all patent and demonstrate normal flow and compressibility. Normal respiratory phasicity and augmentation is present. Impression: 1. No evidence of deep vein thrombosis. Electronically signed by: Chuckie Mclaughlin DO (06/23/2020 12:42 PM) [id number]
== END ==
LOC: US 11:10
PROVIDERS: ATTEND Internal Medicine Hematology & Oncology
DX: C90.00 Multiple myeloma not having achieved remission (principal); R60.0 Localized edema
CPT/HCPCS: 93971

== ENCOUNTER → 2020-06-29 | Outpatient (CLI) | payer BC ==
[~2020-06-29] MED LIST changes: +AMLO-186 PO; -AMLO5TAB10 PO
[2020-06-29 12:24] VITALS: BP 130/70
[2020-06-29 14:22] LABS: BASO % 0 % (0-3); EOS % 1 % (0-3); HEMATOCRIT 37.2 % (39.0-53.0); HEMOGLOBIN 12.4 g/dL (13.0-17.5); LYMPH # 0.5 x10^3/uL (1.0-4.8); LYMPH % 9 % (24-48); MEAN CORPUSCULAR HEMOGLOBIN 32 pg (25-35); MEAN CORPUSCULAR HGB CONC 33 g/dL (31-37); MEAN CORPUSCULAR VOLUME 95 fL (79-100); MONO # 0.3 x10^3/uL (0.0-1.1); MONO % 5 % (0-9); NEUT # 4.4 x10^3/uL (1.8-7.7); NEUT % 84 % (31-73); PLATELET COUNT 170 x10^3/uL (140-400); RED BLOOD COUNT 3.91 x10^6/uL (4.30-5.70); RED CELL DISTRIBUTION WIDTH 15.4 % (11.5-14.5); WHITE BLOOD COUNT 5.2 x10^3/uL (4.0-11.0)
[2020-06-29 14:36] LABS: CALCIUM 8.7 mg/dL (8.5-10.1); CREATININE 0.8 mg/dL (0.7-1.3); GFR 93.5; POTASSIUM 3.5 mmol/L (3.5-5.1)
[2020-06-29 14:42] LABS: ALBUMIN 3.2 g/dL (3.4-5.0); TOTAL BILIRUBIN 0.4 mg/dL (0.2-1.0); TOTAL PROTEIN 6.4 g/dL (6.4-8.2)
== END ==
LOC: ONCLAB 14:05
PROVIDERS: ATTEND Internal Medicine Hematology & Oncology
DX: C90.00 Multiple myeloma not having achieved remission (principal)
CPT/HCPCS: 36415; 80053; 85025

== ENCOUNTER → 2020-07-21 | Outpatient (CLI) | payer BC ==
[2020-07-07 11:20] VITALS: BP 144/55
[2020-07-21 12:18] LABS: BASO % 0 % (0-3); EOS % 0 % (0-3); HEMATOCRIT 37.2 % (39.0-53.0); HEMOGLOBIN 12.4 g/dL (13.0-17.5); LYMPH # 0.4 x10^3/uL (1.0-4.8); LYMPH % 9 % (24-48); MEAN CORPUSCULAR HEMOGLOBIN 32 pg (25-35); MEAN CORPUSCULAR HGB CONC 33 g/dL (31-37); MEAN CORPUSCULAR VOLUME 96 fL (79-100); MONO # 0.2 x10^3/uL (0.0-1.1); MONO % 4 % (0-9); NEUT % 87 % (31-73); PLATELET COUNT 109 x10^3/uL (140-400); RED BLOOD COUNT 3.89 x10^6/uL (4.30-5.70); RED CELL DISTRIBUTION WIDTH 15.5 % (11.5-14.5); WHITE BLOOD COUNT 4.6 x10^3/uL (4.0-11.0)
[2020-07-21 12:27] LABS: CALCIUM 8.1 mg/dL (8.5-10.1); CREATININE 0.8 mg/dL (0.7-1.3); GFR 93.5; POTASSIUM 3.8 mmol/L (3.5-5.1)
[2020-07-21 12:36] LABS: ALBUMIN 3.3 g/dL (3.4-5.0); ALBUMIN/GLOBULIN RATIO 1.3 (1.0-1.7); TOTAL BILIRUBIN 0.9 mg/dL (0.2-1.0); TOTAL PROTEIN 5.9 g/dL (6.4-8.2)
[2020-07-24 12:13] LABS: KAPPA FREE 6.9 mg/L (3.3-19.4); KAPPA LAMBDA RATIO 0.73 (0.26-1.65); LAMBDA FREE 9.4 mg/L (5.7-26.3)
[2020-07-24 17:09] LABS: ALBUM 3.6 g/dL (2.9-4.4); ALPHA 1 0.2 g/dL (0.0-0.4); ALPHA 2 0.6 g/dL (0.4-1.0); BETA 0.7 g/dL (0.7-1.3); GAMMA 0.5 g/dL (0.4-1.8); PROTEIN TOTAL 5.7 g/dL (6.0-8.5); SPEP AG RATIO 1.7 (0.7-1.7)
== END ==
LOC: ONCLAB 12:06
PROVIDERS: ATTEND Internal Medicine Hematology & Oncology
DX: C90.00 Multiple myeloma not having achieved remission (principal)
CPT/HCPCS: 36415; 80053; 83520; 84165; 85025

== ENCOUNTER → 2020-08-18 | Outpatient (CLI) | payer BC ==
[2020-08-07 11:33] VITALS: BP 113/55
[2020-08-18 13:47] LABS: BASO % 1 % (0-3); EOS # 0.4 x10^3/uL (0.0-0.7); EOS % 10 % (0-3); HEMATOCRIT 32.1 % (39.0-53.0); HEMOGLOBIN 10.7 g/dL (13.0-17.5); LYMPH # 0.5 x10^3/uL (1.0-4.8); LYMPH % 11 % (24-48); MEAN CORPUSCULAR HEMOGLOBIN 32 pg (25-35); MEAN CORPUSCULAR HGB CONC 33 g/dL (31-37); MEAN CORPUSCULAR VOLUME 96 fL (79-100); MONO # 0.4 x10^3/uL (0.0-1.1); MONO % 10 % (0-9); NEUT % 68 % (31-73); PLATELET COUNT 178 x10^3/uL (140-400); RED BLOOD COUNT 3.35 x10^6/uL (4.30-5.70); RED CELL DISTRIBUTION WIDTH 17.8 % (11.5-14.5); WHITE BLOOD COUNT 4.5 x10^3/uL (4.0-11.0)
[2020-08-18 14:00] LABS: CALCIUM 7.6 mg/dL (8.5-10.1); CREATININE 0.9 mg/dL (0.7-1.3); GFR 81.6; POTASSIUM 4.3 mmol/L (3.5-5.1)
[2020-08-18 14:05] LABS: ALBUMIN/GLOBULIN RATIO 1.4 (1.0-1.7); TOTAL BILIRUBIN 0.8 mg/dL (0.2-1.0); TOTAL PROTEIN 5.2 g/dL (6.4-8.2)
[2020-08-21 11:18] LABS: KAPPA FREE 7.3 mg/L (3.3-19.4); KAPPA LAMBDA RATIO 0.83 (0.26-1.65); LAMBDA FREE 8.8 mg/L (5.7-26.3)
[2020-08-21 16:15] LABS: ALBUM 3.4 g/dL (2.9-4.4); ALPHA 1 0.2 g/dL (0.0-0.4); ALPHA 2 0.5 g/dL (0.4-1.0); BETA 0.7 g/dL (0.7-1.3); GAMMA 0.4 g/dL (0.4-1.8); PROTEIN TOTAL 5.1 g/dL (6.0-8.5)
== END ==
LOC: ONCLAB 13:29
PROVIDERS: ATTEND Internal Medicine Hematology & Oncology
DX: C90.00 Multiple myeloma not having achieved remission (principal)
CPT/HCPCS: 36415; 80053; 83520; 84165; 85025

== ENCOUNTER → 2020-09-01 | Outpatient (CLI) | payer BC ==
[2020-08-07 11:33] VITALS: BP 113/55
[2020-09-01 14:08] LABS: BASO % 0 % (0-3); EOS # 0.1 x10^3/uL (0.0-0.7); EOS % 4 % (0-3); HEMATOCRIT 33.7 % (39.0-53.0); HEMOGLOBIN 11.4 g/dL (13.0-17.5); LYMPH # 0.8 x10^3/uL (1.0-4.8); LYMPH % 23 % (24-48); MEAN CORPUSCULAR HEMOGLOBIN 32 pg (25-35); MEAN CORPUSCULAR HGB CONC 34 g/dL (31-37); MEAN CORPUSCULAR VOLUME 95 fL (79-100); MONO # 0.4 x10^3/uL (0.0-1.1); MONO % 13 % (0-9); NEUT # 2.1 x10^3/uL (1.8-7.7); NEUT % 60 % (31-73); PLATELET COUNT 117 x10^3/uL (140-400); RED BLOOD COUNT 3.54 x10^6/uL (4.30-5.70); RED CELL DISTRIBUTION WIDTH 18.5 % (11.5-14.5); WHITE BLOOD COUNT 3.4 x10^3/uL (4.0-11.0)
[2020-09-01 14:17] LABS: CALCIUM 8.2 mg/dL (8.5-10.1); CREATININE 0.6 mg/dL (0.7-1.3); GFR 130.3; POTASSIUM 4.1 mmol/L (3.5-5.1)
[2020-09-01 14:22] LABS: ALBUMIN 3.1 g/dL (3.4-5.0); ALBUMIN/GLOBULIN RATIO 1.3 (1.0-1.7); TOTAL BILIRUBIN 0.8 mg/dL (0.2-1.0); TOTAL PROTEIN 5.4 g/dL (6.4-8.2)
[2020-09-04 11:13] LABS: KAPPA FREE 8.4 mg/L (3.3-19.4); KAPPA LAMBDA RATIO 0.97 (0.26-1.65); LAMBDA FREE 8.7 mg/L (5.7-26.3)
[2020-09-04 17:09] LABS: ALBUM 3.2 g/dL (2.9-4.4); ALPHA 1 0.2 g/dL (0.0-0.4); ALPHA 2 0.6 g/dL (0.4-1.0); BETA 0.7 g/dL (0.7-1.3); GAMMA 0.4 g/dL (0.4-1.8); PROTEIN TOTAL 5.1 g/dL (6.0-8.5); SPEP AG RATIO 1.7 (0.7-1.7)
== END ==
LOC: ONCLAB 12:43
PROVIDERS: ATTEND Internal Medicine Hematology & Oncology
DX: C90.00 Multiple myeloma not having achieved remission (principal)
CPT/HCPCS: 36415; 80053; 83520; 84165; 85025

== ENCOUNTER → 2020-09-15 | Outpatient (CLI) | payer BC ==
[2020-08-07 11:33] VITALS: BP 113/55
[~2020-09-15] MED LIST changes: +ACYC-12 PO; +ALLO300T PO; +ASPI325T8 PO; +CALC-178 PO; +CARV6.2511 PO; +DIPH25CA58 PO; +FERR-36 PO; +LISI10TA16 PO; +MAGN64TA7 PO; +METH-38 PO; +PANT40TA77 PO; +SULF1TAB24 PO; +ZOLP5TAB5 PO
[2020-09-21 19:11] LABS: ALPHA 1 UR 4.4 % (.); ALPHA 2 UR 18.7 % (.); PROTEIN 24 UR 134 mg/24 hr (30-150); PROTEIN UR 21.4 mg/dL (Not Estab.)
== END ==
LOC: ONCLAB 11:54
PROVIDERS: ATTEND Internal Medicine Hematology & Oncology
DX: C90.00 Multiple myeloma not having achieved remission (principal)
CPT/HCPCS: 84166

== ENCOUNTER → 2020-09-22 | Outpatient (CLI) | payer BC ==
[2020-08-07 11:33] VITALS: BP 113/55
[2020-09-22 13:17] LABS: BASO % 0 % (0-3); EOS # 0.1 x10^3/uL (0.0-0.7); EOS % 2 % (0-3); HEMOGLOBIN 11.3 g/dL (13.0-17.5); LYMPH # 0.8 x10^3/uL (1.0-4.8); LYMPH % 15 % (24-48); MEAN CORPUSCULAR HEMOGLOBIN 32 pg (25-35); MEAN CORPUSCULAR HGB CONC 33 g/dL (31-37); MEAN CORPUSCULAR VOLUME 96 fL (79-100); MONO % 20 % (0-9); NEUT # 3.1 x10^3/uL (1.8-7.7); NEUT % 63 % (31-73); PLATELET COUNT 131 x10^3/uL (140-400); RED BLOOD COUNT 3.54 x10^6/uL (4.30-5.70); RED CELL DISTRIBUTION WIDTH 18.2 % (11.5-14.5)
[2020-09-22 13:35] LABS: ALBUMIN 3.3 g/dL (3.4-5.0); ALBUMIN/GLOBULIN RATIO 1.4 (1.0-1.7); CALCIUM 8.1 mg/dL (8.5-10.1); CREATININE 0.8 mg/dL (0.7-1.3); GFR 93.5; POTASSIUM 3.4 mmol/L (3.5-5.1); TOTAL BILIRUBIN 1.4 mg/dL (0.2-1.0); TOTAL PROTEIN 5.6 g/dL (6.4-8.2)
[2020-09-22 14:01] LABS: % BANDS 1 % (0-9); % MONOS 17 % (0-10); % SEGS 63 % (35-66)
[2020-09-22 14:02] LABS: % BASOS 1 % (0-3); % LYMPHS 18 % (24-48); PLT ESTIMATE DECREASED (ADEQUATE)
[2020-09-22 14:03] LABS: ANISOCYTOSIS SLIGHT; OVALOCYTES FEW; POLYCHROMASIA SLIGHT
[2020-09-22 14:04] LABS: TOXIC GRANULATION SLIGHT
[2020-09-23 19:31] LABS: KAPPA FREE 9.1 mg/L (3.3-19.4); LAMBDA FREE 7.6 mg/L (5.7-26.3)
[2020-09-25 17:10] LABS: ALBUM 3.6 g/dL (2.9-4.4); ALPHA 1 0.2 g/dL (0.0-0.4); ALPHA 2 0.5 g/dL (0.4-1.0); BETA 0.6 g/dL (0.7-1.3); GAMMA 0.4 g/dL (0.4-1.8); PROTEIN TOTAL 5.3 g/dL (6.0-8.5); SPEP AG RATIO 2.1 (0.7-1.7)
== END ==
LOC: ONCLAB 12:42
PROVIDERS: ATTEND Internal Medicine Hematology & Oncology
DX: C90.00 Multiple myeloma not having achieved remission (principal)
CPT/HCPCS: 36415; 80053; 83520; 84165; 85007; 85025

== ENCOUNTER → 2020-09-28 | Outpatient (CLI) | payer BC ==
[2020-08-07 11:33] VITALS: BP 113/55
[~2020-09-28] MED LIST changes: -ACYC-12 PO; -ALLO300T PO; -ASPI325T8 PO; -CALC-178 PO; -CARV6.2511 PO; -DIPH25CA58 PO; -FERR-36 PO; -LISI10TA16 PO; -MAGN64TA7 PO; -METH-38 PO; -PANT40TA77 PO; -SULF1TAB24 PO; -ZOLP5TAB5 PO
== END ==
LOC: ONCLAB 12:43
PROVIDERS: ATTEND Internal Medicine Hematology & Oncology
DX: C79.51 Secondary malignant neoplasm of bone (principal); D61.810 Antineoplastic chemotherapy induced pancytopenia
CPT/HCPCS: 87493

== ENCOUNTER → 2020-10-11 | Outpatient (CLI) | payer BC ==
[2020-08-07 11:33] VITALS: BP 113/55
[~2020-10-11] MED LIST changes: +ACYC-12 PO; +ALLO300T PO; +ASPI325T8 PO; +CALC-178 PO; +CARV6.2511 PO; +DIPH25CA58 PO; +FERR-36 PO; +LISI10TA16 PO; +MAGN64TA7 PO; +METH-38 PO; +PANT40TA77 PO; +SULF1TAB24 PO; +ZOLP5TAB5 PO
== END ==
LOC: LAB 11:47
PROVIDERS: ATTEND Internal Medicine Hematology & Oncology
DX: Z01.812 Encounter for preprocedural laboratory examination (principal); C90.00 Multiple myeloma not having achieved remission; Z20.828 Contact with and (suspected) exposure to other viral communicable diseases
CPT/HCPCS: U0003

== ENCOUNTER 2020-10-13 08:23 | Outpatient (CLI) | payer BC ==
[2020-10-13] VITALS (9 sets, daily range): BP systolic 83–183; BP diastolic 43–93
[~2020-10-13] VITALS: Ht 175.3 cm; Wt 89.8 kg
[~2020-10-13 08:23] MED LIST changes: -ACYC-12 PO; -ALLO300T PO; -ASPI325T8 PO; -CALC-178 PO; -CARV6.2511 PO; -DIPH25CA58 PO; -FERR-36 PO; -LISI10TA16 PO; -MAGN64TA7 PO; -METH-38 PO; -PANT40TA77 PO; -SULF1TAB24 PO; -ZOLP5TAB5 PO
[2020-10-13 09:04] LABS: BASO % 0 % (0-3); EOS # 0.1 x10^3/uL (0.0-0.7); EOS % 1 % (0-3); HEMATOCRIT 30.3 % (39.0-53.0); HEMOGLOBIN 10.4 g/dL (13.0-17.5); LYMPH # 0.8 x10^3/uL (1.0-4.8); LYMPH % 17 % (24-48); MEAN CORPUSCULAR HEMOGLOBIN 33 pg (25-35); MEAN CORPUSCULAR HGB CONC 34 g/dL (31-37); MEAN CORPUSCULAR VOLUME 95 fL (79-100); MONO # 0.5 x10^3/uL (0.0-1.1); MONO % 10 % (0-9); NEUT # 3.6 x10^3/uL (1.8-7.7); NEUT % 72 % (31-73); PLATELET COUNT 126 x10^3/uL (140-400); RED BLOOD COUNT 3.18 x10^6/uL (4.30-5.70); RED CELL DISTRIBUTION WIDTH 18.9 % (11.5-14.5)
[2020-10-13] MEDS ORDERED: FERR-36 PO (09:15)
[2020-10-13] MEDS ORDERED: SULF1TAB24 PO (09:15)
[2020-10-13] MEDS ORDERED: MAGN64TA7 PO (09:15)
[2020-10-13] MEDS ORDERED: ZOLP5TAB5 PO (09:15)
[2020-10-13] MEDS ORDERED: ALLO300T PO (09:15)
[2020-10-13] MEDS ORDERED: DIPH25CA58 PO (09:15)
[2020-10-13] MEDS ORDERED: ASPI325T8 PO (09:15)
[2020-10-13] MEDS ORDERED: LISI10TA16 PO (09:15)
[2020-10-13] MEDS ORDERED: CARV6.2511 PO (09:15)
[2020-10-13] MEDS ORDERED: ACYC-12 PO (09:15)
[2020-10-13] MEDS ORDERED: METH-38 PO (09:15)
[2020-10-13] MEDS ORDERED: CALC-178 PO (09:15)
[2020-10-13] MEDS ORDERED: PANT40TA77 PO (09:15)
[2020-10-13] MEDS ORDERED: LIDOCAINE WITH 8.4% SOD BICARB 3 ML DISP.SYRIN. ONE (09:17)
[2020-10-13] MEDS ORDERED: MIDAZOLAM HCL/PF 2 MG/2 ML VIAL. ONE (09:17)
[2020-10-13] MEDS ORDERED: fentaNYL PF VIAL 100 MCG/2 ML VIAL ONE (09:18)
[2020-10-13 09:22] LABS: PROTHROMBIN TIME PATIENT 14.5 SEC (11.7-14.0)
[2020-10-13] MEDS ORDERED: fentaNYL PF VIAL 100 MCG/2 ML VIAL IV ONE (09:45)
[2020-10-13] MEDS ORDERED: MIDAZOLAM HCL/PF 2 MG/2 ML VIAL. IV ONE (09:45)
[2020-10-13] MEDS ORDERED: LIDOCAINE WITH 8.4% SOD BICARB 3 ML DISP.SYRIN. IJ ONE (09:45)
--- NOTE | 2020-10-13 10:11 | RAD ---
CT-guided bone marrow biopsy. 10/13/2020 8:07 AM Indication: MULTIPLE MYELOMA Discussion: The risks and benefits of the procedure, including but not limited to, bleeding and infection were discussed patient. Informed consent was obtained. The patient was brought to the CT scanner and placed in the prone position. A timeout procedure was performed. Account Services Representative CT imaging of the pelvis demonstrated left ilium amenable to bone marrow biopsy. The overlying soft tissues were prepped and draped using maximum sterile barrier technique. 1% lidocaine without epinephrine was administered for local anesthesia. Under intermittent CT guidance, an OncControl needle was advanced into the bone marrow of the left iliac crest. 2 Aspirates and 1 core biopsy samples were obtained. Samples were delivered to pathology was present at the time of procedure. The needle was removed and manual pressure held to achieve hemostasis. No immediate complications were identified. The procedure was performed under conscious sedation including continuous cardiopulmonary monitoring via dedicated sedation nurse. Sedation time: 20 minutes Impression: Successful CT-guided bone marrow biopsy of the left iliac crest . PQRS Compliance Statement: One or more of the following individualized dose reduction techniques were utilized for this examination: 1. Automated exposure control 2. Adjustment of the mA and/or kV according to patient size 3. Use of iterative reconstruction technique
--- NOTE | 2020-10-24 10:23 | PATHOLOGY ---
[facility] Accession Number: [id number] . 01 Material submitted: . PART A: bone - BONE MARROW BIOPSY PART B: bone - BONE MARROW BIOPSY CLOT PART C: bone - BONE MARROW ASPIRATE SLIDES PART D: peripheral nerves - PERIPHREAL BLOOD SMEARS . 01 Clinical history: . MULTIPLE MYELOMA . 02 Diagnosis: Peripheral smear: - Normocytic normochromic anemia, mild. - Thrombocytopenia, mild. . Bone marrow, aspirate smears, clot section and core biopsy: - Mildly hypercellular marrow showing trilineage hematopoiesis, erythroid hyperplasia, mild dyserythropoiesis, and only focal mild plasmacytosis comprised of plasma cells showing kappa light chain restriction. See description and comment. - Minute monoclonal B-cell population detected by flow cytometric analysis. See comment. - Focal presence of reticuloendothelial iron stores. (JPM/db; 10/23/2020) LBQ 10/23/2020 1621 Local . 02 Comment: The peripheral smear shows a mild normocytic normochromic anemia and mild thrombocytopenia. The bone marrow is mildly hypercellular and shows trilineage hematopopiesis, erythroid hyperplasia, mild dyserythropoiesis, and focal mild plasmacytosis comprised of plasma cells showing kappa light chain restriction. The aspirate smears and most of the marrow within the biopsy and clot sections show less than 3% polyclonal plasma cells. Two of the marrow particles in one of the clot sections shows mild plasmacytosis with plasma cells comprising between 5% and 10% of nucleated marrow cells. These plasma cells show kappa light chain restriction. These two foci are consistent with focal mild residual involvement by plasma cell dyscrasia. . Flow cytometric analysis of bone marrow reveals a minute (0.2%) population of CD5, CD10 negative monoclonal B-cells. The bone marrow shows no morphologic evidence of lymphomatous involvement. 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 Correlate clinically. (JPM/db; 10/23/2020) . Special stains performed: Retic stain on A1, iron stain on B1 and C1 Immunoperoxidase stains for CD138, CD20 and CD3 on A1, B1 and B2 In situ hybridization for kappa and lambda light chain on A1, B1 and B2 . 02 Electronically signed: . Melecio Mayers MD, Pathologist NPI- [id number] . 01 Gross description: . A. The specimen is received in formalin, labeled "Brett Yang BM BX". Received are three needle cores of light rivera bone ranging in length from 0.5 to 2.0 cm, with each measuring 0.3 cm in diameter. The specimen is submitted entirely in cassette A1, following light decalcification. . B. The specimen is received in formalin, labeled "Brett Yang BM aspirate clot". Received is blood coagulum measuring 3.0 x 2.5 x 0.5 cm in aggregate dimensions. The specimen is filtered and entirely submitted in cassette B1 and B2. ([facility]; 10/13/2020) QA/QAC 10/13/2020 1632 Local . 02 Microscopic: . Laboratory Data: The WBC count is 5.0 K/CMM, and the automated WBC differential reveals 72% neutrophils, 17% lymphs, 10% monos, and 1% eos. The RBC count is 3.18 M/CMM, hemoglobin 10.4 G/DL, hematocrit 30.3%, MCV 95 FL, MCH 33 PG, MCHC 34 G/DL, and the RDW is 18.9%. The platelet count is 126 K/CMM. The serum total protein is 5.3 G/DL, albumin 3.6 G/DL, and total globulin 1.7 G/DL. Serum protein electrophoresis shows no evidence of a monoclonal spike. The serum free kappa light chain is 9.1 MG/L, free lambda light chain 7.6 MG/L, and the serum kappa/lambda ratio is 1.20. . Peripheral Smear: The peripheral smear is reviewed. The WBC count is low normal. The WBC differential reveals a predominance of segmented neutrophils, with smaller populations of lymphocytes and monocytes noted. Neutrophils do not show dysplastic changes. There is no significant neutrophilic left shift. There is no leukoerythroblastic reaction. The lymphocyte population consists predominantly of small lymphocytes. There are no circulating plasma cells. Red blood cells predominantly appear normochromic and normocytic. Red blood cells show mild anisocytosis and mild poikilocytosis with several ovalocytes and spiculated red blood cells and occasional red blood cell fragments noted. There is no evidence of red blood cell rouleaux. Platelets are mildly decreased and appear normal in morphology. . Aspirate Smears: Two Mccullough's-stained and one iron-stained aspirate smears are examined. The smears contain multiple marrow particles which do appear cellular for age. There is an erythroid hyperplasia. The M/E ratio overall is approximately 1:1. Erythroid maturation predominantly appears normoblastic. There is mild dyserythropoiesis comprised of some maturing erythroid precursors which are binucleated or show irregular nuclear shapes. Granulopoiesis qualitatively appears normal. There is no significant left shift or dysplastic changes. There is no increase of blasts. Megakaryocytes appear adequate in number and are of variable ploidy. There is no increase of lymphocytes. Only occasional plasma cells are present. Plasma cells easily comprise less than 3% of nucleated marrow cells. There are no cells foreign to the marrow. The iron-stained smear shows focal adequate reticuloendothelial iron stores. No ringed sideroblasts are identified. . Bone Marrow Biopsy and Clot Sections: Sections of the bone marrow biopsy reveal segments of bone marrow showing focal aspiration artifact. Preserved areas of the biopsy range between 30% and 50% cellular. The clot sections contain multiple marrow particles which range between 30% and 60% cellular. There is an erythroid hyperplasia. There are admixed granulocytic precursors which are present in varying stages of maturation. There is no increase of blasts. Megakaryocytes appear adequate in number and are of variable ploidy. There are only a few scattered admixed plasma cells with no solid clusters or areas of sheet-like replacement by plasma cells noted. There are no abnormal lymphoid aggregates, granulomas, or cells foreign to the marrow. A limited panel of immunoperoxidase stains and in situ hybridization for kappa and lambda light chain are obtained on the biopsy and clot sections and yield the following results: . CD138 (A1): Few plasma cells positive having a scattered interstitial distribution and comprising less than 3% of nucleated marrow cells. . [place] and lambda CARMINA (A1): Plasma cells appear polyclonal . CD20 (A1): Few lymphocytes positive having a scattered interstitial distribution and comprising less than 5% of nucleated marrow cells. . CD3 (A1): Small population of lymphocytes positive having an interstitial distribution and comprising between 10% and 20% of nucleated marrow cells. . CD138 (B1): Small population of plasma cells positive having a scattered interstitial distribution and comprising less than 3% of nucleated marrow cells. . [place] and lambda CARMINA (B1): Plasma cells appear polyclonal . CD20 (B1): Small population of small lymphocytes positive having a scattered interstitial distribution and comprising less than 5% of nucleated marrow cells. . CD3 (B1): Small population of small lymphocytes positive having a scattered interstitial distribution and comprising between 10% and 20% of nucleated marrow cells. . CD138 (B2): Plasma cells positive, with most particles showing scattered interstitial plasma cells comprising less than 3% of nucleated marrow cells; two foci of mild plasmacytosis showing between 5% and 15% plasma cells. . [place] and lambda CARMINA (B2): Most particles showing less than 3% plasma cells reveal polyclonal plasma cells; the two foci of mild plasmacytosis show kappa light chain restriction. . CD20 (B2): Small population of small lymphocytes positive having a scattered interstitial distribution and comprising less than 5% of nucleated marrow cells. . CD3 (B2): Small population of small lymphocytes positive having a scattered interstitial distribution and comprising 10-20% of nucleated marrow cells. . A reticulin stain obtained on the biopsy shows no increase of reticulin fibers. An iron stain obtained on the clot section shows focal reticuloendothelial iron stores. No ringed sideroblasts are identified. (JPM/db; 10/23/2020) . Special Studies: Bone marrow submitted for flow cytometric analysis has a viability of 95%. Granulocytes comprise 85.8% of total cells and show phenotypic evidence of left-shifted maturation. Monocytes comprise 3.6% of total cells and show phenotypic evidence of maturation. CD45 dim, CD34 positive cells comprise 1.1% of total cells. Plasma cells are absent. Lymphocytes comprise 7.0% of total cells. T-cells comprise 83% of lymphoid cells and show a CD4/CD8 ratio of 3.4. NK-cells comprise 9% of lymphoid cells. Mature B-cells comprise 2% of lymphoid cells and 0.2% of total cells and are monoclonal. These B-cells are CD19, CD20, CD11C, and HLA-DR positive and show kappa light chain restriction (kappa:lambda ratio 81.5). These same B-cells are CD5, CD10, and CD23 negative. . Bone marrow submitted for cytogenetic analysis shows a normal male karyotype in all cells analyzed. (PATRICIAM:ying:merary; 10/19/2020) . 02 Pathologist provided ICD-10: D64.9, D69.6, D75.9, D72.822 . 02 CPT . 533954, 597961, 424258, 575257, 990623, 360474, 966900, 104717, Q61701, N61859, R94938, S22716, 323984 Specimen Comment: A courtesy copy of this report has been sent to [phone] Specimen Comment: Report sent to Specimen Comment: A duplicate report has been generated due to demographic updates. Performed at: 01 [facility] [address], [place] [id number] MD Vitaly Bullock MD Phone: [phone] Performed at: 02 [facility] [address] [place], [place] [id number] MD Melecio Mayers MD Phone: [phone]
== END 2020-10-13 11:39 | disposition home or self-care (01) ==
LOC: INTRAD 08:23
PROVIDERS: ATTEND Internal Medicine Hematology & Oncology
DX: C90.00 Multiple myeloma not having achieved remission (principal); I25.10 Atherosclerotic heart disease of native coronary artery without angina pectoris; I10 Essential (primary) hypertension; E78.00 Pure hypercholesterolemia, unspecified; K21.9 Gastro-esophageal reflux disease without esophagitis; M19.90 Unspecified osteoarthritis, unspecified site; F41.9 Anxiety disorder, unspecified; Z79.82 Long term (current) use of aspirin; Z79.899 Other long term (current) drug therapy; Z98.890 Other specified postprocedural states; Z87.891 Personal history of nicotine dependence
CPT/HCPCS: 36415; 38222; 77012; 85025; 85610; 88184; 88185; 88237; 99152; J2250; J3010; J3490; 88305; 88311; 88313; 88341; 88342; 88360; 88364; 88365; 88374

== ENCOUNTER → 2020-10-18 | Outpatient (CLI) | payer BC ==
[2020-10-13 11:11] VITALS: BP 90/44
[~2020-10-18] MED LIST changes: +ACYC-12 PO; +ALLO300T PO; +ASPI325T8 PO; +CALC-178 PO; +CARV6.2511 PO; +DIPH25CA58 PO; +FERR-36 PO; +LISI10TA16 PO; +MAGN64TA7 PO; +METH-38 PO; +PANT40TA77 PO; +SULF1TAB24 PO; +ZOLP5TAB5 PO
[2020-10-18 12:26] LABS: BASO % 0 % (0-3); EOS # 0.2 x10^3/uL (0.0-0.7); EOS % 4 % (0-3); HEMATOCRIT 30.1 % (39.0-53.0); HEMOGLOBIN 10.5 g/dL (13.0-17.5); LYMPH # 0.8 x10^3/uL (1.0-4.8); LYMPH % 17 % (24-48); MEAN CORPUSCULAR HEMOGLOBIN 34 pg (25-35); MEAN CORPUSCULAR HGB CONC 35 g/dL (31-37); MEAN CORPUSCULAR VOLUME 97 fL (79-100); MONO # 0.5 x10^3/uL (0.0-1.1); MONO % 12 % (0-9); NEUT # 3.1 x10^3/uL (1.8-7.7); NEUT % 68 % (31-73); PLATELET COUNT 185 x10^3/uL (140-400); RED BLOOD COUNT 3.09 x10^6/uL (4.30-5.70); RED CELL DISTRIBUTION WIDTH 18.9 % (11.5-14.5); WHITE BLOOD COUNT 4.5 x10^3/uL (4.0-11.0)
[2020-10-18 12:53] LABS: CALCIUM 8.4 mg/dL (8.5-10.1); CREATININE 0.7 mg/dL (0.7-1.3); GFR 109.1; POTASSIUM 3.5 mmol/L (3.5-5.1)
[2020-10-18 12:58] LABS: ALBUMIN 3.3 g/dL (3.4-5.0); ALBUMIN/GLOBULIN RATIO 1.6 (1.0-1.7); TOTAL BILIRUBIN 1.4 mg/dL (0.2-1.0); TOTAL PROTEIN 5.4 g/dL (6.4-8.2)
[2020-10-26 17:10] LABS: METHYLMALONIC ACID 132 nmol/L (0-378)
== END ==
LOC: ONCLAB 11:44
PROVIDERS: ATTEND Internal Medicine Hematology & Oncology
DX: C79.51 Secondary malignant neoplasm of bone (principal); E83.52 Hypercalcemia; M85.89 Other specified disorders of bone density and structure, multiple sites; I10 Essential (primary) hypertension; G47.00 Insomnia, unspecified; D61.810 Antineoplastic chemotherapy induced pancytopenia; R19.7 Diarrhea, unspecified
CPT/HCPCS: 36415; 80053; 82728; 82746; 83540; 83550; 83921; 85025; 87493; 87505

== ENCOUNTER → 2020-10-27 | Outpatient (CLI) | payer BC ==
[2020-10-13 11:11] VITALS: BP 90/44
[~2020-10-27] MED LIST changes: -ACYC-12 PO; +ACYC400T PO
[2020-10-27 14:30] LABS: BASO % 0 % (0-3); EOS # 0.1 x10^3/uL (0.0-0.7); EOS % 2 % (0-3); HEMATOCRIT 32.1 % (39.0-53.0); HEMOGLOBIN 10.9 g/dL (13.0-17.5); LYMPH # 0.7 x10^3/uL (1.0-4.8); LYMPH % 16 % (24-48); MEAN CORPUSCULAR HEMOGLOBIN 34 pg (25-35); MEAN CORPUSCULAR HGB CONC 34 g/dL (31-37); MEAN CORPUSCULAR VOLUME 100 fL (79-100); MONO # 0.4 x10^3/uL (0.0-1.1); MONO % 10 % (0-9); NEUT % 71 % (31-73); PLATELET COUNT 173 x10^3/uL (140-400); RED BLOOD COUNT 3.23 x10^6/uL (4.30-5.70); RED CELL DISTRIBUTION WIDTH 17.7 % (11.5-14.5); WHITE BLOOD COUNT 4.2 x10^3/uL (4.0-11.0)
[2020-10-27 14:50] LABS: CALCIUM 8.4 mg/dL (8.5-10.1); CREATININE 0.8 mg/dL (0.7-1.3); GFR 93.5; POTASSIUM 3.3 mmol/L (3.5-5.1)
[2020-10-27 14:58] LABS: ALBUMIN 3.3 g/dL (3.4-5.0); ALBUMIN/GLOBULIN RATIO 1.7 (1.0-1.7); TOTAL BILIRUBIN 1.3 mg/dL (0.2-1.0); TOTAL PROTEIN 5.3 g/dL (6.4-8.2)
[2020-10-30 06:20] LABS: KAPPA FREE 5.4 mg/L (3.3-19.4); LAMBDA FREE 3.6 mg/L (5.7-26.3)
[2020-10-30 13:11] LABS: ALBUM 3.5 g/dL (2.9-4.4); ALPHA 1 0.2 g/dL (0.0-0.4); ALPHA 2 0.5 g/dL (0.4-1.0); BETA 0.6 g/dL (0.7-1.3); GAMMA 0.4 g/dL (0.4-1.8); PROTEIN TOTAL 5.2 g/dL (6.0-8.5); SPEP AG RATIO 2.1 (0.7-1.7)
== END ==
LOC: ONCLAB 14:07
PROVIDERS: ATTEND Internal Medicine Hematology & Oncology
DX: C90.00 Multiple myeloma not having achieved remission (principal)
CPT/HCPCS: 36415; 80053; 83520; 84165; 85025

== ENCOUNTER → 2020-11-17 | Outpatient (CLI) | payer BC ==
[2020-10-13 11:11] VITALS: BP 90/44
[2020-11-17 13:45] LABS: BASO % 1 % (0-3); EOS # 0.1 x10^3/uL (0.0-0.7); EOS % 1 % (0-3); HEMATOCRIT 36.1 % (39.0-53.0); HEMOGLOBIN 12.3 g/dL (13.0-17.5); LYMPH # 0.8 x10^3/uL (1.0-4.8); LYMPH % 15 % (24-48); MEAN CORPUSCULAR HEMOGLOBIN 34 pg (25-35); MEAN CORPUSCULAR HGB CONC 34 g/dL (31-37); MEAN CORPUSCULAR VOLUME 100 fL (79-100); MONO # 0.6 x10^3/uL (0.0-1.1); MONO % 11 % (0-9); NEUT % 72 % (31-73); PLATELET COUNT 142 x10^3/uL (140-400); RED BLOOD COUNT 3.62 x10^6/uL (4.30-5.70); RED CELL DISTRIBUTION WIDTH 14.5 % (11.5-14.5); WHITE BLOOD COUNT 5.5 x10^3/uL (4.0-11.0)
[2020-11-17 13:56] LABS: CREATININE 0.7 mg/dL (0.7-1.3); GFR 109.1; POTASSIUM 3.7 mmol/L (3.5-5.1)
[2020-11-17 14:02] LABS: ALBUMIN 3.2 g/dL (3.4-5.0); ALBUMIN/GLOBULIN RATIO 1.3 (1.0-1.7); TOTAL BILIRUBIN 0.7 mg/dL (0.2-1.0); TOTAL PROTEIN 5.6 g/dL (6.4-8.2)
[2020-11-18 19:10] LABS: KAPPA FREE 12.7 mg/L (3.3-19.4); KAPPA LAMBDA RATIO 1.09 (0.26-1.65); LAMBDA FREE 11.6 mg/L (5.7-26.3)
== END ==
LOC: ONCLAB 13:21
PROVIDERS: ATTEND Internal Medicine Hematology & Oncology
DX: C90.00 Multiple myeloma not having achieved remission (principal); C90.01 Multiple myeloma in remission
CPT/HCPCS: 36415; 80053; 83520; 84165; 85025

== ENCOUNTER → 2020-12-18 | Outpatient (CLI) | payer BC ==
[2020-10-13 11:11] VITALS: BP 90/44
[2020-12-18 13:43] LABS: BASO % 1 % (0-3); EOS # 0.2 x10^3/uL (0.0-0.7); EOS % 5 % (0-3); HEMATOCRIT 36.1 % (39.0-53.0); HEMOGLOBIN 12.3 g/dL (13.0-17.5); LYMPH # 0.7 x10^3/uL (1.0-4.8); LYMPH % 23 % (24-48); MEAN CORPUSCULAR HEMOGLOBIN 33 pg (25-35); MEAN CORPUSCULAR HGB CONC 34 g/dL (31-37); MEAN CORPUSCULAR VOLUME 97 fL (79-100); MONO # 0.4 x10^3/uL (0.0-1.1); MONO % 12 % (0-9); NEUT # 1.8 x10^3/uL (1.8-7.7); NEUT % 59 % (31-73); PLATELET COUNT 140 x10^3/uL (140-400); RED BLOOD COUNT 3.72 x10^6/uL (4.30-5.70); RED CELL DISTRIBUTION WIDTH 14.1 % (11.5-14.5)
[2020-12-18 13:58] LABS: CALCIUM 7.6 mg/dL (8.5-10.1); CREATININE 0.6 mg/dL (0.7-1.3); GFR 130.3; POTASSIUM 3.2 mmol/L (3.5-5.1)
[2020-12-18 14:05] LABS: ALBUMIN/GLOBULIN RATIO 1.4 (1.0-1.7); TOTAL BILIRUBIN 0.8 mg/dL (0.2-1.0); TOTAL PROTEIN 5.1 g/dL (6.4-8.2)
[2020-12-19 11:18] LABS: ALBUM 3.3 g/dL (2.9-4.4); PROTEIN TOTAL 5.2 g/dL (6.0-8.5)
[2020-12-19 11:19] LABS: ALPHA 1 0.2 g/dL (0.0-0.4); ALPHA 2 0.5 g/dL (0.4-1.0); BETA 0.6 g/dL (0.7-1.3); GAMMA 0.5 g/dL (0.4-1.8); SPEP AG RATIO 1.7 (0.7-1.7)
[2020-12-19 16:10] LABS: KAPPA FREE 12.9 mg/L (3.3-19.4); KAPPA LAMBDA RATIO 0.91 (0.26-1.65); LAMBDA FREE 14.2 mg/L (5.7-26.3)
== END ==
LOC: ONCLAB 13:21
PROVIDERS: ATTEND Internal Medicine Hematology & Oncology
DX: C90.01 Multiple myeloma in remission (principal)
CPT/HCPCS: 36415; 80053; 83520; 84165; 85025

== ENCOUNTER → 2021-01-16 | Outpatient (CLI) | payer BC ==
[2020-10-13 11:11] VITALS: BP 90/44
[~2021-01-16] MED LIST changes: +ACYC-12 PO; -ACYC400T PO
[2021-01-16 14:07] LABS: BASO % 1 % (0-3); EOS # 0.2 x10^3/uL (0.0-0.7); EOS % 5 % (0-3); HEMATOCRIT 36.4 % (39.0-53.0); HEMOGLOBIN 12.5 g/dL (13.0-17.5); LYMPH # 0.8 x10^3/uL (1.0-4.8); LYMPH % 22 % (24-48); MEAN CORPUSCULAR HEMOGLOBIN 33 pg (25-35); MEAN CORPUSCULAR HGB CONC 34 g/dL (31-37); MEAN CORPUSCULAR VOLUME 95 fL (79-100); MONO # 0.5 x10^3/uL (0.0-1.1); MONO % 13 % (0-9); NEUT % 58 % (31-73); PLATELET COUNT 131 x10^3/uL (140-400); RED BLOOD COUNT 3.82 x10^6/uL (4.30-5.70); RED CELL DISTRIBUTION WIDTH 14.3 % (11.5-14.5); WHITE BLOOD COUNT 3.4 x10^3/uL (4.0-11.0)
[2021-01-16 14:09] LABS: CALCIUM 7.7 mg/dL (8.5-10.1); CREATININE 0.7 mg/dL (0.7-1.3); GFR 109.1; POTASSIUM 3.6 mmol/L (3.5-5.1)
[2021-01-16 14:15] LABS: ALBUMIN 3.3 g/dL (3.4-5.0); ALBUMIN/GLOBULIN RATIO 1.7 (1.0-1.7); TOTAL BILIRUBIN 0.8 mg/dL (0.2-1.0); TOTAL PROTEIN 5.3 g/dL (6.4-8.2)
[2021-01-17 13:13] LABS: KAPPA FREE 12.5 mg/L (3.3-19.4); KAPPA LAMBDA RATIO 0.97 (0.26-1.65); LAMBDA FREE 12.9 mg/L (5.7-26.3)
[2021-01-17 16:37] LABS: ALBUM 3.2 g/dL (2.9-4.4); ALPHA 1 0.2 g/dL (0.0-0.4); ALPHA 2 0.5 g/dL (0.4-1.0); BETA 0.6 g/dL (0.7-1.3); GAMMA 0.5 g/dL (0.4-1.8); SPEP AG RATIO 1.8 (0.7-1.7)
== END ==
LOC: ONCLAB 13:29
PROVIDERS: ATTEND Internal Medicine Hematology & Oncology
DX: C90.01 Multiple myeloma in remission (principal)
CPT/HCPCS: 36415; 80053; 83520; 84165; 85025

== ENCOUNTER → 2021-02-13 | Outpatient (CLI) | payer BC ==
[2020-10-13 11:11] VITALS: BP 90/44
[2021-02-13 13:36] LABS: BASO % 1 % (0-3); EOS # 0.3 x10^3/uL (0.0-0.7); EOS % 8 % (0-3); HEMATOCRIT 37.3 % (39.0-53.0); HEMOGLOBIN 12.7 g/dL (13.0-17.5); LYMPH # 0.7 x10^3/uL (1.0-4.8); LYMPH % 20 % (24-48); MEAN CORPUSCULAR HEMOGLOBIN 33 pg (25-35); MEAN CORPUSCULAR HGB CONC 34 g/dL (31-37); MEAN CORPUSCULAR VOLUME 97 fL (79-100); MONO # 0.5 x10^3/uL (0.0-1.1); MONO % 15 % (0-9); NEUT % 56 % (31-73); PLATELET COUNT 137 x10^3/uL (140-400); RED BLOOD COUNT 3.86 x10^6/uL (4.30-5.70); RED CELL DISTRIBUTION WIDTH 15.2 % (11.5-14.5); WHITE BLOOD COUNT 3.6 x10^3/uL (4.0-11.0)
[2021-02-13 13:48] LABS: CALCIUM 8.3 mg/dL (8.5-10.1); CREATININE 0.7 mg/dL (0.7-1.3); GFR 109.1; POTASSIUM 3.7 mmol/L (3.5-5.1)
[2021-02-13 13:55] LABS: ALBUMIN 3.4 g/dL (3.4-5.0); ALBUMIN/GLOBULIN RATIO 1.5 (1.0-1.7); TOTAL BILIRUBIN 0.9 mg/dL (0.2-1.0); TOTAL PROTEIN 5.6 g/dL (6.4-8.2)
[2021-02-14 12:13] LABS: ALBUM 3.5 g/dL (2.9-4.4); ALPHA 1 0.2 g/dL (0.0-0.4); ALPHA 2 0.4 g/dL (0.4-1.0); BETA 0.6 g/dL (0.7-1.3); GAMMA 0.6 g/dL (0.4-1.8); PROTEIN TOTAL 5.3 g/dL (6.0-8.5); SPEP AG RATIO 1.9 (0.7-1.7)
[2021-02-14 16:19] LABS: KAPPA FREE 14.5 mg/L (3.3-19.4); KAPPA LAMBDA RATIO 1.13 (0.26-1.65); LAMBDA FREE 12.8 mg/L (5.7-26.3)
== END ==
LOC: ONCLAB 08:00
PROVIDERS: ATTEND Internal Medicine Hematology & Oncology
DX: C90.01 Multiple myeloma in remission (principal)
CPT/HCPCS: 36415; 80053; 83520; 84165; 85025

== ENCOUNTER → 2021-02-15 | Outpatient (CLI) | payer BC ==
[2020-10-13 11:11] VITALS: BP 90/44
--- NOTE | 2021-02-18 12:35 | CARD ---
MR#: [id number] Date of Study: 02/15/2021 Ordering Physician: CHRISSIE YAN, Referring Physician: CHRISSIE YAN, Tech: Marcelina Paz [facility] APPROVED REPORT EXAM: Two-dimensional and M-mode echocardiogram with Doppler and color Doppler. Other Information Quality : AverageHR: 58bpm Rhythm : NSR INDICATION Dyspnea Cardiac Disease: CAD RISK FACTORS Hypertension Hyperlipidemia 2D DIMENSIONS RVDd4.4 (2.9-3.5cm)Left Atrium(2D)5.3 (1.6-4.0cm) IVSd1.4 (0.7-1.1cm)Aortic Root(2D)3.5 (2.0-3.7cm) LVDd5.0 (3.9-5.9cm)LVOT Diameter2.8 (1.8-2.4cm) PWd1.2 (0.7-1.1cm)IVSs1.8 (0.8-1.2cm) LVDs3.5 (2.5-4.0cm)FS (%) 29.4 % PWs1.8 (0.8-1.2cm)SV66.3 ml Aortic Valve AoV Peak Jaylen.125.5cm/sAoV VTI31.4cm AO Peak GR.6.3mmHgLVOT Peak Jaylen.94.1cm/s LVOT VTI 23.48cmAO Mean GR.3mmHg ANDRIA (VMAX)4.52xo1DLA (VTI)4.72cm2 AI P 1/2 Sfbl165rp Mitral Valve MV E Uglieaio22.8cm/sMV DECEL GEYJ521do MV A Veceecmt76.3cm/sMV FWG22rx E/A Ratio1.0MVA (PHT)3.90cm2 TDI E/Lateral E'10.0E/Medial E'9.5 Pulmonary Valve PV Peak Jopcqnhs55.8cm/sPV Peak Grad.4mmHg Tricuspid Valve TR P. Jlmfhpvk108pb/sTR Peak Gr.26mmHg LEFT VENTRICLE The left ventricle is normal size. There is mild concentric left ventricular hypertrophy. The left ve ntricular systolic function is normal and the ejection fraction is within normal range. LV ejection fraction is 50-55%. There is normal LV segmental wall motion. Transmitral Doppler flow pattern is Gra de I-abnormal relaxation pattern. RIGHT VENTRICLE The right ventricle is normal size. There is normal right ventricular wall thickness. The right ventr icular systolic function is normal. ATRIA The left atrium size is normal. The right atrium size is normal. The interatrial septum is intact wit h no evidence for an atrial septal defect or patent foramen ovale as noted on 2-D or Doppler imaging. AORTIC VALVE The aortic valve is normal in structure and function. Doppler and Color Flow revealed trace to mild a ortic regurgitation. There is no significant aortic valvular stenosis. MITRAL VALVE The mitral valve is normal in structure and function. There is no evidence of mitral valve prolapse. There is no mitral valve stenosis. Doppler and Color-flow revealed trace mitral regurgitation. TRICUSPID VALVE The tricuspid valve is normal in structure and function. Doppler and Color Flow revealed mild tricusp id regurgitation. Estimated PAP 30 mmHg. There is no tricuspid valve stenosis. PULMONIC VALVE The pulmonary valve is normal in structure and function. Doppler and Color Flow revealed no pulmonic valvular regurgitation. GREAT VESSELS The aortic root is normal in size. The ascending aorta is normal in size. The IVC is normal in size a nd collapses >50% with inspiration. PERICARDIAL EFFUSION There is no evidence of significant pericardial effusion. Critical Notification Critical Value: No <Conclusion> The left ventricle is normal size. The left ventricular systolic function is normal and the ejection fraction is within normal range. LV ejection fraction is 50-55%. There is mild concentric left ventricular hypertrophy. Doppler and Color Flow revealed trace to mild aortic regurgitation. There is no significant aortic valvular stenosis. Doppler and Color-flow revealed trace mitral regurgitation. Doppler and Color Flow revealed mild tricuspid regurgitation. Estimated PAP 30 mmHg. Signed by : Andrew Rodas MD Electronically Approved : 02/18/2021 12:35:17
== END ==
LOC: ECHO 13:40
PROVIDERS: ATTEND Internal Medicine Cardiovascular Disease
DX: I08.2 Rheumatic disorders of both aortic and tricuspid valves (principal); I11.9 Hypertensive heart disease without heart failure; I25.10 Atherosclerotic heart disease of native coronary artery without angina pectoris
CPT/HCPCS: 93306

== ENCOUNTER → 2021-03-13 | Outpatient (CLI) | payer BC ==
[2020-10-13 11:11] VITALS: BP 90/44
[2021-03-13 13:26] LABS: BASO % 1 % (0-3); EOS # 0.2 x10^3/uL (0.0-0.7); EOS % 4 % (0-3); HEMATOCRIT 38.9 % (39.0-53.0); HEMOGLOBIN 13.3 g/dL (13.0-17.5); LYMPH # 0.9 x10^3/uL (1.0-4.8); LYMPH % 18 % (24-48); MEAN CORPUSCULAR HEMOGLOBIN 34 pg (25-35); MEAN CORPUSCULAR HGB CONC 34 g/dL (31-37); MEAN CORPUSCULAR VOLUME 99 fL (79-100); MONO # 0.4 x10^3/uL (0.0-1.1); MONO % 8 % (0-9); NEUT # 3.7 x10^3/uL (1.8-7.7); NEUT % 69 % (31-73); PLATELET COUNT 167 x10^3/uL (140-400); RED BLOOD COUNT 3.94 x10^6/uL (4.30-5.70); RED CELL DISTRIBUTION WIDTH 14.8 % (11.5-14.5); WHITE BLOOD COUNT 5.3 x10^3/uL (4.0-11.0)
[2021-03-13 13:40] LABS: CALCIUM 8.3 mg/dL (8.5-10.1); CREATININE 0.8 mg/dL (0.7-1.3); GFR 93.5; POTASSIUM 4.3 mmol/L (3.5-5.1)
[2021-03-13 13:46] LABS: ALBUMIN 3.5 g/dL (3.4-5.0); ALBUMIN/GLOBULIN RATIO 1.4 (1.0-1.7); TOTAL BILIRUBIN 1.3 mg/dL (0.2-1.0)
[2021-03-14 16:12] LABS: ALBUM 3.5 g/dL (2.9-4.4); ALPHA 1 0.2 g/dL (0.0-0.4); ALPHA 2 0.5 g/dL (0.4-1.0); BETA 0.7 g/dL (0.7-1.3); GAMMA 0.7 g/dL (0.4-1.8); KAPPA LAMBDA RATIO 1.46 (0.26-1.65); LAMBDA FREE 9.6 mg/L (5.7-26.3); PROTEIN TOTAL 5.6 g/dL (6.0-8.5); SPEP AG RATIO 1.7 (0.7-1.7)
== END ==
LOC: ONCLAB 12:35
PROVIDERS: ATTEND Internal Medicine Hematology & Oncology
DX: C90.01 Multiple myeloma in remission (principal)
CPT/HCPCS: 36415; 80053; 83520; 84165; 85025

== ENCOUNTER → 2021-03-16 | Outpatient (CLI) | payer BC ==
[2020-10-13 11:11] VITALS: BP 90/44
--- NOTE | 2021-03-16 10:25 | RAD ---
CT brain without contrast. HISTORY: Headaches CT scan of brain was done without contrast. There are changes from prior sinus surgery. There is slig ht mucosal thickening in the ethmoid sinuses, remaining sinuses are clear. There is no skull fracture . There is no intracranial hemorrhage or subdural hematoma. Ventricles are normal in size. There is n o mass effect or shift of the midline. There is mild decreased density in the periventricular white m atter suggesting mild microvascular changes. There is mild fluid in the mastoid air cells bilaterally . There is no definite fluid in the middle ears. IMPRESSION: 1. Fluid in mastoid air cells bilaterally possible mastoiditis. 2. Mild mucosal thickening in ethmoid sinuses. 3. No intracranial hemorrhage or other acute finding noted intracranially. 4. Mild decreased density in the white matter from chronic microvascular changes. PQRS Compliance Statement: One or more of the following individualized dose reduction techniques were utilized for this examinat ion: 1. Automated exposure control 2. Adjustment of the mA and/or kV according to patient size 3. Use of iterative reconstruction technique Electronically signed by: Peterson Rodriguez MD (03/16/2021 10:23 AM) [facility]
== END ==
LOC: CT 09:56
PROVIDERS: ATTEND Internal Medicine Hematology & Oncology
DX: R51.9 Headache, unspecified (principal)
CPT/HCPCS: 70450

== ENCOUNTER → 2021-04-16 | Outpatient (CLI) | payer BC ==
[2020-10-13 11:11] VITALS: BP 90/44
[2021-04-16 13:04] LABS: BASO # 0.1 x10^3/uL (0.0-0.2); BASO % 1 % (0-3); EOS # 0.2 x10^3/uL (0.0-0.7); EOS % 5 % (0-3); LYMPH % 22 % (24-48); MEAN CORPUSCULAR HEMOGLOBIN 34 pg (25-35); MEAN CORPUSCULAR HGB CONC 34 g/dL (31-37); MEAN CORPUSCULAR VOLUME 99 fL (79-100); MONO # 0.6 x10^3/uL (0.0-1.1); MONO % 13 % (0-9); NEUT # 2.7 x10^3/uL (1.8-7.7); NEUT % 59 % (31-73); PLATELET COUNT 142 x10^3/uL (140-400); RED BLOOD COUNT 3.84 x10^6/uL (4.30-5.70); RED CELL DISTRIBUTION WIDTH 14.2 % (11.5-14.5); WHITE BLOOD COUNT 4.6 x10^3/uL (4.0-11.0)
[2021-04-16 13:13] LABS: CALCIUM 8.3 mg/dL (8.5-10.1); CREATININE 0.7 mg/dL (0.7-1.3); GFR 109.1; POTASSIUM 3.4 mmol/L (3.5-5.1)
[2021-04-16 13:19] LABS: ALBUMIN 3.3 g/dL (3.4-5.0); ALBUMIN/GLOBULIN RATIO 1.3 (1.0-1.7); TOTAL PROTEIN 5.9 g/dL (6.4-8.2)
[2021-04-17 13:17] LABS: KAPPA FREE 17.1 mg/L (3.3-19.4); LAMBDA FREE 10.7 mg/L (5.7-26.3)
[2021-04-17 14:28] LABS: ALBUM 3.4 g/dL (2.9-4.4); ALPHA 1 0.2 g/dL (0.0-0.4); ALPHA 2 0.5 g/dL (0.4-1.0); BETA 0.7 g/dL (0.7-1.3); GAMMA 0.8 g/dL (0.4-1.8); PROTEIN TOTAL 5.6 g/dL (6.0-8.5); SPEP AG RATIO 1.5 (0.7-1.7)
== END ==
LOC: ONCLAB 12:44
PROVIDERS: ATTEND Internal Medicine Hematology & Oncology
DX: C90.00 Multiple myeloma not having achieved remission (principal)
CPT/HCPCS: 36415; 80053; 83520; 84165; 85025

== ENCOUNTER → 2021-04-30 | Outpatient (CLI) | payer BC ==
[2020-10-13 11:11] VITALS: BP 90/44
[~2021-04-30] MED LIST changes: +CONTRAST GIVEN. MC PRN; +IOHEXOL 240 MG/ML 50ML VIAL. PO ONE; +IOHEXOL 300 MG/ML 100ML VIAL. IV ONE
--- NOTE | 2021-04-30 16:19 | RAD ---
Contrast enhanced CT scan of the pelvis without comparison for right groin pain. TECHNIQUE: Contiguous axial CT images are obtained through the pelvis following administration of IV contrast. Sagittal and coronal reformations are evaluated. FINDINGS: There is a high attenuation right renal mass which is exophytic but only partially included on the scan and could represent a complex cyst or enhancing soft tissue tumor. Further evaluation wi th right renal ultrasound or three-phase CT scan of the abdomen is recommended for complete character ization. There is a right inguinal hernia containing nonincarcerated opacified small bowel. There is no evidence of bowel obstruction at a level. Moderate amount of stool seen throughout the descending colon, and there are several diverticula with no evidence of acute diverticulitis. Urinary bladder is only partially fluid distended but is grossly unremarkable. There are no free or loculated fluid col lections within the abdomen or pelvis. No suspicious adenopathy is seen. There is a right hip prosthe sis. Several dystrophic calcifications within the soft tissues about the right hip. No suspicious ost eoblastic or osteolytic bone lesions. Advanced degenerative changes of lower lumbar spine. IMPRESSION: 1. Right inguinal indirect hernia containing nonincarcerated loops of small bowel. 2. High density exophytic right renal mass incompletely characterized on this pelvic examination. Thi s could represent a proteinaceous cyst, or soft tissue lesion. Complete characterization with renal u ltrasound or three-phase CT scan of the abdomen is recommended. PQRS Compliance Statement: One or more of the following individualized dose reduction techniques were utilized for this examinat ion: 1. Automated exposure control 2. Adjustment of the mA and/or kV according to patient size 3. Use of iterative reconstruction technique Electronically signed by: Roberto Alarcon MD (04/30/2021 4:17 PM) [id number]
== END ==
LOC: CT 10:52
PROVIDERS: ATTEND Family Medicine
DX: K40.90 Unilateral inguinal hernia, without obstruction or gangrene, not specified as recurrent (principal); N28.89 Other specified disorders of kidney and ureter; N32.89 Other specified disorders of bladder; M79.89 Other specified soft tissue disorders; Z96.641 Presence of right artificial hip joint
CPT/HCPCS: 72193; Q9966; Q9967

== ENCOUNTER → 2021-05-14 | Outpatient (CLI) | payer BC ==
[2020-10-13 11:11] VITALS: BP 90/44
[~2021-05-14] MED LIST changes: +CHOL4POW2 PO; -CONTRAST GIVEN. MC PRN; +HYDR-2759 PO; -IOHEXOL 240 MG/ML 50ML VIAL. PO ONE; -IOHEXOL 300 MG/ML 100ML VIAL. IV ONE; +LENA10CA PO
[2021-05-14 13:20] LABS: BASO % 1 % (0-3); EOS # 0.1 x10^3/uL (0.0-0.7); EOS % 1 % (0-3); HEMATOCRIT 39.7 % (39.0-53.0); HEMOGLOBIN 13.8 g/dL (13.0-17.5); LYMPH # 1.3 x10^3/uL (1.0-4.8); LYMPH % 27 % (24-48); MEAN CORPUSCULAR HEMOGLOBIN 35 pg (25-35); MEAN CORPUSCULAR HGB CONC 35 g/dL (31-37); MEAN CORPUSCULAR VOLUME 99 fL (79-100); MONO # 0.6 x10^3/uL (0.0-1.1); MONO % 12 % (0-9); NEUT # 2.8 x10^3/uL (1.8-7.7); NEUT % 59 % (31-73); PLATELET COUNT 148 x10^3/uL (140-400); RED CELL DISTRIBUTION WIDTH 13.8 % (11.5-14.5); WHITE BLOOD COUNT 4.8 x10^3/uL (4.0-11.0)
[2021-05-14 13:24] LABS: CALCIUM 8.8 mg/dL (8.5-10.1); CREATININE 0.8 mg/dL (0.7-1.3); GFR 93.5; POTASSIUM 4.7 mmol/L (3.5-5.1)
[2021-05-14 13:31] LABS: ALBUMIN 3.5 g/dL (3.4-5.0); ALBUMIN/GLOBULIN RATIO 1.3 (1.0-1.7); TOTAL PROTEIN 6.1 g/dL (6.4-8.2)
[2021-05-15 13:13] LABS: ALBUM 3.5 g/dL (2.9-4.4); ALPHA 1 0.2 g/dL (0.0-0.4); ALPHA 2 0.5 g/dL (0.4-1.0); BETA 0.8 g/dL (0.7-1.3); GAMMA 0.8 g/dL (0.4-1.8); PROTEIN TOTAL 5.8 g/dL (6.0-8.5); SPEP AG RATIO 1.5 (0.7-1.7)
== END ==
LOC: ONCLAB 12:56
PROVIDERS: ATTEND Internal Medicine Hematology & Oncology
DX: C90.01 Multiple myeloma in remission (principal)
CPT/HCPCS: 36415; 80053; 84165; 85025

== ENCOUNTER 2021-05-16 10:31 | Day surgery (SDC) | payer BC ==
[~2021-05-16] VITALS: Ht 168.9 cm; Wt 84.6 kg
[~2021-05-16 10:31] MED LIST changes: -CHOL4POW2 PO; -HYDR-2759 PO; +HYDROmorphone 2 MG/ML VIAL IVP PRN; +MORPHINE SULFATE 2 MG/ML INJ. IVP PRN; +PROCHLORPERAZINE 10 MG/2 ML VIAL. IVP PRN; +fentaNYL PF VIAL 100 MCG/2 ML VIAL IVP PRN
[2021-05-16 11:02] VITALS: BP 172/75
[2021-05-16] MEDS: IV RINGERS,LACTATED 1000ML 1,000 ML IV SCH ×2 (11:06→15:24)
[2021-05-16] MEDS ORDERED: CHOL4POW2 PO (11:11)
[2021-05-16] MEDS ORDERED: fentaNYL PF VIAL 100 MCG/2 ML VIAL ONE (12:23)
[2021-05-16] MEDS ORDERED: PROPOFOL 10 MG/ML (20ML) VIAL. IV ONE (12:23)
[2021-05-16] MEDS ORDERED: LIDOCAINE 1% PF 5 ML VIAL. ONE (12:25)
[2021-05-16] MEDS ORDERED: DEXAMETHASONE SOD PHOS 4 MG/ML VIAL ONE (12:25)
[2021-05-16] MEDS ORDERED: BUPIVACAINE-EPI 0.5%-1:200000 MPF 30 ML VIAL. ONE (13:24)
[2021-05-16] MEDS ORDERED: GLYCOPYRROLATE 1 MG/5 ML VIAL. ONE (13:34)
[2021-05-16] MEDS ORDERED: ATROPINE 1 MG/10 ML DISP.SYRINGE. ONE (13:36)
[2021-05-16] MEDS ORDERED: SEVOFLURANE 61 TO 120 MINUTES. IH ONE (14:26)
--- NOTE | 2021-05-16 14:55 | PDOC4 ---
Operative Note Operative Note Operative Note: Preoperative Diagnosis: Right inguinal hernia Postoperative Diagnosis: Same Procedure: Right inguinal hernia repair with mesh Surgeon: David Prison Warden: ORVILLE Cisneros Anesthesia: General EBL: 10 mL Specimen: Right inguinal hernia sac to pathology Drains: None Complications: None Indication: The patient is a 80-year-old male who is referred with a right inguinal hernia. He was offered surgical treatment. The risks of surgery were discussed which include bleeding, infection, recurrence, pain, anesthetic risk, urinary retention, potential need for additional surgery procedure. He understands and would like to proceed. Description: The patient was taken to the operating room and placed supine on the operating table. General anesthesia was performed. The right groin was shaved prepped with ChloraPrep and draped in a standard surgical manner. An incision was made in the groin with a scalpel. Cautery dissection was carried down to the external oblique aponeurosis. The aponeurosis was opened down to the external ring. The contents of the inguinal canal were digitally mobilized and encircled with a Comstock drain. There was a moderate sized indirect hernia sac present. The sac was mobilized from the surrounding tissues. Given its redundancy we elected to excise the majority of it. This was sent to pathology for evaluation. The stump was oversewn and inverted. The defect was filled with a medium sized Phasix mesh plug. The plug was sutured around its periphery with 2-0 Vicryl. The inguinal floor was then reinforced with a keyhole Prolene mesh patch. The patch was also sutured into position with 2-0 Vicryl. The external oblique was closed over the mesh with 2-0 Vicryl. The subcutaneous tissue was closed with 3-0 Vicryl. Skin was approximated with 4-0 Monocryl and infiltrated with half percent Marcaine with epinephrine. Steri-Strips and a sterile dressing were applied. The patient tolerated the procedure well and was sent to the recovery room in stable condition. At the end of the case all counts were correct. MYESHA GROVE MD May 16, 2021 14:55
--- NOTE | 2021-05-16 14:58 | DISCH ---
DISCHARGE INSTRUCTIONS Condition on Discharge Condition on Discharge: Stable Activity After Discharge Activity Instructions for Disc: Other, see below (no lifting over 20 lbs X 4 weeks, no driving while taking pain meds) Diet after Discharge Diet after Discharge: Regular Wound Incision Care Wound/Incision Care: Other, see below (keep dressing clean and dry X 72 hours, may then remove and shower) Follow-Up Follow up with: Dr Grove in office in 2 weeks, call for appointment [phone] MYESHA GROVE MD May 16, 2021 14:58
[2021-05-16] MEDS ORDERED: HYDR-2759 PO (15:00)
[2021-05-16] MEDS ORDERED: HYDROcodone/APAP 5/325MG 1 TAB TABLET PO ONE (15:45)
[2021-05-16 16:10] VITALS: BP 170/78
--- NOTE | 2021-05-22 17:06 | PATHOLOGY ---
[facility] Accession Number: [id number] . 01 Material submitted: . inguinal area - RIGHT INGUINAL HERNIA SAC. Modifiers: right . 01 Clinical history: . R INGUINAL HERNIA REPAIR . 02 Diagnosis: Segment of mesothelial-lined fibromembranous tissue, right inguinal hernia repair: - Hernia sac showing focal submesothelial reactive fibrosis. (JPM:[facility]; 05/22/2021) QTP 05/22/2021 0846 Local . 02 Electronically signed: . Melecio Mayers MD, Pathologist NPI- [id number] . 01 Gross description: . Fixative: Formalin Labeled: R inguinal hernia Specimen received: Raven-rivera, light cain fibromembranous tissue Dimensions: 4.5 x 3.2 x 1.4 cm Abnormalities: None identified Submitted representatively in cassette A1. ([facility]; 05/17/2021) NRI/NRI 05/17/2021 1656 Local . 02 Pathologist provided ICD-10: K40.90 . 02 CPT . 298161 Specimen Comment: A courtesy copy of this report has been sent to [phone] Specimen Comment: [id number] Specimen Comment: Report sent to / DR YU Performed at: 01 [facility] [address], [place], [place] [id number] MD Vitaly Bullock MD Phone: [phone] Performed at: 02 [facility] [address] [place], [place] [id number] MD Melecio Mayers MD Phone: [phone]
== END 2021-05-16 16:44 | disposition home or self-care (01) ==
LOC: SURG 10:31
PROVIDERS: ATTEND Surgery
DX: K40.90 Unilateral inguinal hernia, without obstruction or gangrene, not specified as recurrent (principal); I10 Essential (primary) hypertension; E78.00 Pure hypercholesterolemia, unspecified; K21.9 Gastro-esophageal reflux disease without esophagitis; N40.0 Benign prostatic hyperplasia without lower urinary tract symptoms; M19.90 Unspecified osteoarthritis, unspecified site; F41.9 Anxiety disorder, unspecified; I25.10 Atherosclerotic heart disease of native coronary artery without angina pectoris; Z87.891 Personal history of nicotine dependence; Z79.899 Other long term (current) drug therapy; Z98.890 Other specified postprocedural states
CPT/HCPCS: 49505; A4364; A4930; A6402; C1781; J0461; J0690; J1100; J2704; J3010; J3490; 88302; A4452

== ENCOUNTER → 2021-06-11 | Outpatient (CLI) | payer BC ==
[2021-05-16 16:10] VITALS: BP 170/78
[~2021-06-11] MED LIST changes: +CHOL4POW2 PO; +HYDR-2759 PO; -HYDROmorphone 2 MG/ML VIAL IVP PRN; -MORPHINE SULFATE 2 MG/ML INJ. IVP PRN; -PROCHLORPERAZINE 10 MG/2 ML VIAL. IVP PRN; -fentaNYL PF VIAL 100 MCG/2 ML VIAL IVP PRN
[2021-06-11 13:52] LABS: CALCIUM 8.3 mg/dL (8.5-10.1); CREATININE 0.8 mg/dL (0.7-1.3); GFR 93.3; POTASSIUM 3.3 mmol/L (3.5-5.1)
[2021-06-11 13:55] LABS: BASO % 0 % (0-3); EOS # 0.4 x10^3/uL (0.0-0.7); EOS % 7 % (0-3); HEMATOCRIT 36.4 % (39.0-53.0); HEMOGLOBIN 12.7 g/dL (13.0-17.5); LYMPH # 1.3 x10^3/uL (1.0-4.8); LYMPH % 21 % (24-48); MEAN CORPUSCULAR HEMOGLOBIN 35 pg (25-35); MEAN CORPUSCULAR HGB CONC 35 g/dL (31-37); MEAN CORPUSCULAR VOLUME 99 fL (79-100); MONO # 0.9 x10^3/uL (0.0-1.1); MONO % 14 % (0-9); NEUT # 3.6 x10^3/uL (1.8-7.7); NEUT % 58 % (31-73); PLATELET COUNT 143 x10^3/uL (140-400); RED BLOOD COUNT 3.67 x10^6/uL (4.30-5.70); RED CELL DISTRIBUTION WIDTH 13.7 % (11.5-14.5); WHITE BLOOD COUNT 6.3 x10^3/uL (4.0-11.0)
[2021-06-11 13:58] LABS: ALBUMIN 3.2 g/dL (3.4-5.0); ALBUMIN/GLOBULIN RATIO 1.2 (1.0-1.7); TOTAL BILIRUBIN 0.7 mg/dL (0.2-1.0); TOTAL PROTEIN 5.9 g/dL (6.4-8.2)
[2021-06-13 09:14] LABS: KAPPA FREE 24.3 mg/L (3.3-19.4); KAPPA LAMBDA RATIO 2.76 (0.26-1.65); LAMBDA FREE 8.8 mg/L (5.7-26.3)
[2021-06-13 15:30] LABS: ALBUM 3.3 g/dL (2.9-4.4); ALPHA 1 0.2 g/dL (0.0-0.4); ALPHA 2 0.5 g/dL (0.4-1.0); BETA 0.7 g/dL (0.7-1.3); GAMMA 0.8 g/dL (0.4-1.8); PROTEIN TOTAL 5.6 g/dL (6.0-8.5); SPEP AG RATIO 1.4 (0.7-1.7)
== END ==
LOC: ONCLAB 13:03
PROVIDERS: ATTEND Internal Medicine Hematology & Oncology
DX: C90.01 Multiple myeloma in remission (principal)
CPT/HCPCS: 36415; 80053; 83520; 84165; 85025

== ENCOUNTER → 2021-07-11 | Outpatient (CLI) | payer BC ==
[2021-07-11 13:46] LABS: BASO # 0.1 x10^3/uL (0.0-0.2); BASO % 1 % (0-3); EOS # 0.3 x10^3/uL (0.0-0.7); EOS % 6 % (0-3); HEMATOCRIT 38.6 % (39.0-53.0); HEMOGLOBIN 13.1 g/dL (13.0-17.5); LYMPH % 23 % (24-48); MEAN CORPUSCULAR HEMOGLOBIN 34 pg (25-35); MEAN CORPUSCULAR HGB CONC 34 g/dL (31-37); MEAN CORPUSCULAR VOLUME 101 fL (79-100); MONO # 0.6 x10^3/uL (0.0-1.1); MONO % 14 % (0-9); NEUT # 2.5 x10^3/uL (1.8-7.7); NEUT % 56 % (31-73); PLATELET COUNT 134 x10^3/uL (140-400); RED BLOOD COUNT 3.84 x10^6/uL (4.30-5.70); RED CELL DISTRIBUTION WIDTH 13.7 % (11.5-14.5); WHITE BLOOD COUNT 4.6 x10^3/uL (4.0-11.0)
[2021-07-11 13:47] LABS: CREATININE 0.8 mg/dL (0.7-1.3); GFR 93.3; POTASSIUM 4.2 mmol/L (3.5-5.1)
[2021-07-11 13:52] LABS: ALBUMIN 3.3 g/dL (3.4-5.0); ALBUMIN/GLOBULIN RATIO 1.2 (1.0-1.7)
[2021-07-12 15:25] LABS: KAPPA FREE 28.7 mg/L (3.3-19.4); KAPPA LAMBDA RATIO 2.54 (0.26-1.65); LAMBDA FREE 11.3 mg/L (5.7-26.3)
== END ==
LOC: ONCLAB 13:11
PROVIDERS: ATTEND Internal Medicine Hematology & Oncology
DX: C90.01 Multiple myeloma in remission (principal)
CPT/HCPCS: 36415; 80053; 83520; 85025

== ENCOUNTER → 2021-08-13 | Outpatient (CLI) | payer BC ==
[2021-08-13 12:27] LABS: BASO # 0.1 x10^3/uL (0.0-0.2); BASO % 1 % (0-3); EOS # 0.3 x10^3/uL (0.0-0.7); EOS % 6 % (0-3); HEMATOCRIT 40.7 % (39.0-53.0); HEMOGLOBIN 13.7 g/dL (13.0-17.5); LYMPH % 21 % (24-48); MEAN CORPUSCULAR HEMOGLOBIN 34 pg (25-35); MEAN CORPUSCULAR HGB CONC 34 g/dL (31-37); MEAN CORPUSCULAR VOLUME 100 fL (79-100); MONO # 0.7 x10^3/uL (0.0-1.1); MONO % 14 % (0-9); NEUT # 2.6 x10^3/uL (1.8-7.7); NEUT % 57 % (31-73); PLATELET COUNT 133 x10^3/uL (140-400); RED BLOOD COUNT 4.08 x10^6/uL (4.30-5.70); WHITE BLOOD COUNT 4.6 x10^3/uL (4.0-11.0)
[2021-08-13 12:35] LABS: CALCIUM 8.4 mg/dL (8.5-10.1); CREATININE 0.7 mg/dL (0.7-1.3); GFR 108.8; POTASSIUM 4.1 mmol/L (3.5-5.1)
[2021-08-13 12:41] LABS: ALBUMIN 3.3 g/dL (3.4-5.0); ALBUMIN/GLOBULIN RATIO 1.1 (1.0-1.7); TOTAL PROTEIN 6.2 g/dL (6.4-8.2)
[2021-08-14 13:12] LABS: ALBUM 3.6 g/dL (2.9-4.4); ALPHA 1 0.2 g/dL (0.0-0.4); ALPHA 2 0.5 g/dL (0.4-1.0); BETA 0.8 g/dL (0.7-1.3); GAMMA 0.8 g/dL (0.4-1.8); SPEP AG RATIO 1.5 (0.7-1.7)
[2021-08-15 06:15] LABS: KAPPA FREE 38.6 mg/L (3.3-19.4); KAPPA LAMBDA RATIO 2.84 (0.26-1.65); LAMBDA FREE 13.6 mg/L (5.7-26.3)
== END ==
LOC: ONCLAB 12:03
PROVIDERS: ATTEND Internal Medicine Hematology & Oncology
DX: C90.01 Multiple myeloma in remission (principal)
CPT/HCPCS: 36415; 80053; 83520; 84165; 85025

== ENCOUNTER → 2021-09-21 | Outpatient (CLI) | payer BC ==
[2021-09-21 13:37] LABS: CALCIUM 7.9 mg/dL (8.5-10.1); CREATININE 0.8 mg/dL (0.7-1.3); GFR 93.3; POTASSIUM 3.9 mmol/L (3.5-5.1)
[2021-09-21 13:42] LABS: BASO % 1 % (0-3); EOS # 0.2 x10^3/uL (0.0-0.7); EOS % 3 % (0-3); HEMATOCRIT 39.9 % (39.0-53.0); LYMPH # 1.2 x10^3/uL (1.0-4.8); LYMPH % 19 % (24-48); MEAN CORPUSCULAR HEMOGLOBIN 34 pg (25-35); MEAN CORPUSCULAR HGB CONC 35 g/dL (31-37); MEAN CORPUSCULAR VOLUME 98 fL (79-100); MONO # 0.9 x10^3/uL (0.0-1.1); MONO % 15 % (0-9); NEUT # 3.9 x10^3/uL (1.8-7.7); NEUT % 63 % (31-73); PLATELET COUNT 134 x10^3/uL (140-400); RED BLOOD COUNT 4.08 x10^6/uL (4.30-5.70); RED CELL DISTRIBUTION WIDTH 13.9 % (11.5-14.5); WHITE BLOOD COUNT 6.2 x10^3/uL (4.0-11.0)
[2021-09-21 13:43] LABS: ALBUMIN 3.3 g/dL (3.4-5.0); TOTAL BILIRUBIN 1.3 mg/dL (0.2-1.0); TOTAL PROTEIN 6.5 g/dL (6.4-8.2)
[2021-09-24 13:29] LABS: KAPPA FREE 60.8 mg/L (3.3-19.4); KAPPA LAMBDA RATIO 4.83 (0.26-1.65); LAMBDA FREE 12.6 mg/L (5.7-26.3)
[2021-09-24 14:10] LABS: ALBUM 3.6 g/dL (2.9-4.4); ALPHA 1 0.2 g/dL (0.0-0.4); ALPHA 2 0.5 g/dL (0.4-1.0); BETA 0.7 g/dL (0.7-1.3); GAMMA 0.8 g/dL (0.4-1.8); PROTEIN TOTAL 5.8 g/dL (6.0-8.5); SPEP AG RATIO 1.6 (0.7-1.7)
== END ==
LOC: ONCLAB 12:52
PROVIDERS: ATTEND Internal Medicine Hematology & Oncology
DX: C90.01 Multiple myeloma in remission (principal)
CPT/HCPCS: 36415; 80053; 83520; 84165; 85025

== ENCOUNTER → 2021-10-22 | Outpatient (CLI) | payer BC ==
[2021-10-22 13:16] LABS: BASO % 1 % (0-3); EOS # 0.3 x10^3/uL (0.0-0.7); EOS % 6 % (0-3); HEMATOCRIT 40.3 % (39.0-53.0); HEMOGLOBIN 13.6 g/dL (13.0-17.5); LYMPH # 1.1 x10^3/uL (1.0-4.8); LYMPH % 25 % (24-48); MEAN CORPUSCULAR HEMOGLOBIN 34 pg (25-35); MEAN CORPUSCULAR HGB CONC 34 g/dL (31-37); MEAN CORPUSCULAR VOLUME 100 fL (79-100); MONO # 0.6 x10^3/uL (0.0-1.1); MONO % 14 % (0-9); NEUT # 2.5 x10^3/uL (1.8-7.7); NEUT % 54 % (31-73); PLATELET COUNT 146 x10^3/uL (140-400); RED BLOOD COUNT 4.05 x10^6/uL (4.30-5.70); WHITE BLOOD COUNT 4.5 x10^3/uL (4.0-11.0)
[2021-10-22 13:24] LABS: CALCIUM 7.9 mg/dL (8.5-10.1); CREATININE 0.8 mg/dL (0.7-1.3); GFR 93.3; POTASSIUM 3.7 mmol/L (3.5-5.1)
[2021-10-22 13:30] LABS: ALBUMIN 3.2 g/dL (3.4-5.0); TOTAL BILIRUBIN 1.2 mg/dL (0.2-1.0); TOTAL PROTEIN 6.5 g/dL (6.4-8.2)
[2021-10-23 13:14] LABS: ALBUM 3.8 g/dL (2.9-4.4); ALPHA 1 0.2 g/dL (0.0-0.4); ALPHA 2 0.5 g/dL (0.4-1.0); BETA 0.8 g/dL (0.7-1.3); PROTEIN TOTAL 6.2 g/dL (6.0-8.5); SPEP AG RATIO 1.6 (0.7-1.7)
== END ==
LOC: ONCLAB 12:53
PROVIDERS: ATTEND Internal Medicine Hematology & Oncology
DX: C90.01 Multiple myeloma in remission (principal)
CPT/HCPCS: 36415; 80053; 83520; 84165; 85025

== ENCOUNTER → 2021-11-19 | Outpatient (CLI) | payer BC ==
[2021-11-19 13:33] LABS: BASO % 1 % (0-3); EOS # 0.2 x10^3/uL (0.0-0.7); EOS % 5 % (0-3); HEMATOCRIT 39.4 % (39.0-53.0); HEMOGLOBIN 13.2 g/dL (13.0-17.5); LYMPH # 1.1 x10^3/uL (1.0-4.8); LYMPH % 26 % (24-48); MEAN CORPUSCULAR HEMOGLOBIN 33 pg (25-35); MEAN CORPUSCULAR HGB CONC 33 g/dL (31-37); MEAN CORPUSCULAR VOLUME 100 fL (79-100); MONO # 0.6 x10^3/uL (0.0-1.1); MONO % 13 % (0-9); NEUT # 2.3 x10^3/uL (1.8-7.7); NEUT % 55 % (31-73); PLATELET COUNT 135 x10^3/uL (140-400); RED BLOOD COUNT 3.95 x10^6/uL (4.30-5.70); RED CELL DISTRIBUTION WIDTH 14.1 % (11.5-14.5); WHITE BLOOD COUNT 4.2 x10^3/uL (4.0-11.0)
[2021-11-19 13:45] LABS: CALCIUM 8.3 mg/dL (8.5-10.1); CREATININE 0.8 mg/dL (0.7-1.3); GFR 93.3; POTASSIUM 3.7 mmol/L (3.5-5.1)
[2021-11-19 13:50] LABS: ALBUMIN 3.4 g/dL (3.4-5.0); TOTAL PROTEIN 6.7 g/dL (6.4-8.2)
[2021-11-20 14:17] LABS: ALBUM 3.5 g/dL (2.9-4.4); ALPHA 1 0.3 g/dL (0.0-0.4); ALPHA 2 0.6 g/dL (0.4-1.0); BETA 0.8 g/dL (0.7-1.3); PROTEIN TOTAL 6.2 g/dL (6.0-8.5); SPEP AG RATIO 1.3 (0.7-1.7)
[2021-11-20 16:11] LABS: KAPPA FREE 125.1 mg/L (3.3-19.4); KAPPA LAMBDA RATIO 8.07 (0.26-1.65); LAMBDA FREE 15.5 mg/L (5.7-26.3)
== END ==
LOC: ONCLAB 13:15
PROVIDERS: ATTEND Internal Medicine Hematology & Oncology
DX: C90.01 Multiple myeloma in remission (principal)
CPT/HCPCS: 36415; 80053; 83520; 84165; 85025

== ENCOUNTER → 2021-11-21 | Outpatient (CLI) | payer BC ==
--- NOTE | 2021-11-21 11:11 | KCIC ---
Left SHOULDER , 3 VIEWS Clinical Indication: Reason: Chronic Lt shoulder pain, pain w/movement. /History of multiple myeloma. : Comparison: None. Findings: There is no acute fracture or dislocation. The acromioclavicular and glenohumeral joints are intact. There are minimal degenerative changes. The visualized lung is clear. There is no evidence of a displ aced rib fracture. There is no soft tissue abnormality. There are multiple small lytic lesions in the visualized bones compatible with the history of multiple myeloma. Atherosclerotic aortic arch. IMPRESSION: 1. Minimal degenerative changes. 2. Findings compatible with multiple myeloma. Electronically signed by: Bon Carroll MD (11/21/2021 11:09 AM) [id number]
== END ==
LOC: KCIC 09:13
PROVIDERS: ATTEND Family Medicine
DX: M19.012 Primary osteoarthritis, left shoulder (principal); M89.9 Disorder of bone, unspecified
CPT/HCPCS: 73030

== ENCOUNTER → 2021-12-17 | Outpatient (CLI) | payer BC ==
[~2021-12-17] MED LIST changes: -CHOL4POW2 PO; +CHOL4POW6 PO
[2021-12-17 09:53] LABS: BASO % 1 % (0-3); EOS # 0.3 x10^3/uL (0.0-0.7); EOS % 6 % (0-3); HEMATOCRIT 37.9 % (39.0-53.0); HEMOGLOBIN 12.8 g/dL (13.0-17.5); LYMPH # 1.2 x10^3/uL (1.0-4.8); LYMPH % 26 % (24-48); MEAN CORPUSCULAR HEMOGLOBIN 33 pg (25-35); MEAN CORPUSCULAR HGB CONC 34 g/dL (31-37); MEAN CORPUSCULAR VOLUME 99 fL (79-100); MONO # 0.9 x10^3/uL (0.0-1.1); MONO % 19 % (0-9); NEUT # 2.2 x10^3/uL (1.8-7.7); NEUT % 49 % (31-73); PLATELET COUNT 138 x10^3/uL (140-400); RED BLOOD COUNT 3.84 x10^6/uL (4.30-5.70); RED CELL DISTRIBUTION WIDTH 13.7 % (11.5-14.5); WHITE BLOOD COUNT 4.6 x10^3/uL (4.0-11.0)
[2021-12-17 10:04] LABS: CALCIUM 8.6 mg/dL (8.5-10.1); CREATININE 0.9 mg/dL (0.7-1.3); GFR 81.4; POTASSIUM 4.3 mmol/L (3.5-5.1)
[2021-12-17 10:10] LABS: ALBUMIN 3.2 g/dL (3.4-5.0); ALBUMIN/GLOBULIN RATIO 0.8 (1.0-1.7); TOTAL BILIRUBIN 0.9 mg/dL (0.2-1.0); TOTAL PROTEIN 7.1 g/dL (6.4-8.2)
[2021-12-17 13:24] LABS: % BANDS 2 % (0-9); % BASOS 2 % (0-3); % EOS 7 % (0-5); % LYMPHS 27 % (24-48); % MONOS 20 % (0-10); % SEGS 42 % (35-66)
[2021-12-17 13:25] LABS: PLT ESTIMATE DECREASED (ADEQUATE)
[2021-12-18 15:15] LABS: KAPPA FREE 230.6 mg/L (3.3-19.4); KAPPA LAMBDA RATIO 16.35 (0.26-1.65); LAMBDA FREE 14.1 mg/L (5.7-26.3)
[2021-12-18 19:35] LABS: ALBUM 3.4 g/dL (2.9-4.4); ALPHA 1 0.3 g/dL (0.0-0.4); ALPHA 2 0.8 g/dL (0.4-1.0); BETA 0.8 g/dL (0.7-1.3); GAMMA 1.1 g/dL (0.4-1.8); PROTEIN TOTAL 6.4 g/dL (6.0-8.5); SPEP AG RATIO 1.1 (0.7-1.7)
== END ==
LOC: ONCLAB 09:31
PROVIDERS: ATTEND Internal Medicine Hematology & Oncology
DX: C90.01 Multiple myeloma in remission (principal)
CPT/HCPCS: 36415; 80053; 83520; 84165; 85007; 85025

== ENCOUNTER → 2022-01-16 | Outpatient (CLI) | payer BC ==
[2022-01-16 10:56] LABS: BASO % 0 % (0-3); EOS # 0.1 x10^3/uL (0.0-0.7); EOS % 2 % (0-3); HEMOGLOBIN 10.4 g/dL (13.0-17.5); LYMPH # 0.9 x10^3/uL (1.0-4.8); LYMPH % 19 % (24-48); MEAN CORPUSCULAR HEMOGLOBIN 33 pg (25-35); MEAN CORPUSCULAR HGB CONC 35 g/dL (31-37); MEAN CORPUSCULAR VOLUME 96 fL (79-100); MONO # 0.9 x10^3/uL (0.0-1.1); MONO % 18 % (0-9); NEUT # 2.9 x10^3/uL (1.8-7.7); NEUT % 61 % (31-73); PLATELET COUNT 223 x10^3/uL (140-400); RED BLOOD COUNT 3.13 x10^6/uL (4.30-5.70); RED CELL DISTRIBUTION WIDTH 13.8 % (11.5-14.5); WHITE BLOOD COUNT 4.8 x10^3/uL (4.0-11.0)
[2022-01-16 11:03] LABS: CALCIUM 8.3 mg/dL (8.5-10.1); CREATININE 1.1 mg/dL (0.7-1.3); GFR 64.6; POTASSIUM 3.1 mmol/L (3.5-5.1)
[2022-01-16 11:09] LABS: ALBUMIN 2.4 g/dL (3.4-5.0); ALBUMIN/GLOBULIN RATIO 0.4 (1.0-1.7); TOTAL BILIRUBIN 1.3 mg/dL (0.2-1.0); TOTAL PROTEIN 7.9 g/dL (6.4-8.2)
== END ==
LOC: ONCLAB 10:30
PROVIDERS: ATTEND Internal Medicine Hematology & Oncology
DX: C90.01 Multiple myeloma in remission (principal)
CPT/HCPCS: 80053; 82784; 83520; 84165; 85025; 86334